=== PATIENT | male | born 1935 | race Caucasian/White ===

== ENCOUNTER 2017-03-18 19:18 | Inpatient (IN) ==
--- NOTE | 2017-03-18 19:44 | Emergency Department Note ---
Arrival - Arrival Chief Complaint: Neuro ED Nursing Triage Note: pt lives alone and family came to visit around 1800 today and stated pt was ambulatory but had right side facial droop with slurred speech that obviously had resolved upon ems arrival. no obvious s/s of facial droop or slurred speech or weakness noted in triage. pt states he has had a headache since about 1300 today but hasnt had his bp med today Limitations: Altered Mental Status Source: Patient, Family Time Seen by Provider: 03/18/17 19:39 - History of Present Illness HPI Narrative: This 81-year-old white male presents with a history of being found by his family approximately 2 hours ago with a right facial droop, slurred speech, and confusion. They did not observe any specific focal motor weakness. Patient's symptoms resolved in the process of being conveyed to the hospital by EMS and now the patient presents alert and oriented with clear speech. This follows approximate 24 hours after having an episode of confusion and abnormal behavior that again was short lived but not associated with slurred speech or facial droop. Because of his symptoms yesterday he was seen by Dr. Gokul Wyman who undertook a number studies including a CT of the brain which yesterday was normal. The patient complains of a chronic moderate headache behind the right eye not associated with nausea, vomiting, diaphoresis, chest pain, shortness of breath, or focal deficit. Patient does have a history of a prior CVA which at the time was associated with left-sided weakness but all deficits had resolved. Currently the patient appears in no acute medical distress. Onset (ago): hour(s) (Patient presents 36 hours post onset of symptoms.) Allergies/Adverse Reactions: Allergies Allergy/AdvReac Type Severity Reaction Status Date / Time Penicillins Allergy RASH Verified 10/17/16 18:17 Home Medications: Home Medications Medication Instructions Recorded Confirmed Type Alfuzosin [Uroxatral] 10 mg PO DAILY 10/17/16 03/18/17 History Aspirin EC Tab 81 mg PO DAILY 10/17/16 03/18/17 History [place]-3 Fatty Acids [Fish Oil 1,000 mg PO DAILY 10/17/16 03/18/17 History Concentrate] Meclizine [Antivert] 25 mg PO QID PRN #50 tablet 10/22/16 03/18/17 Rx Omeprazole [Prilosec] 20 mg PO DAILY #30 capsule 10/22/16 03/18/17 Rx Review of System - Review of System 12 point system: reviewed and no additional remarkable complaints except as stated - Review of System Constitutional: Present: as per HPI Respiratory: Present: as per HPI Cardiovascular: Present: as per HPI Gastrointestinal: Present: as per HPI Neurological: Present: as per HPI Medical,Surgical,& Family Hx - Medical History Cardio: History of: Hypertension Genitourinary: History of: Prostate Problems (BPH) - Family History Family History: Reports;: Family Cancer, Family Heart Disease - Social History Smoking Status: Never smoker Frequency of Alcohol Use: None Type of Drug Use: None Exam Physical Examination: GENERAL: Well developed, well nourished elderly white male in no acute distress. HEENT: Normocephalic. No trauma. Moist mucous membranes. EOMI. PERRLA. ENT NML NECK: Supple. No adenopathy. CARDIAC: Regular. No murmurs. Heart rate 81 CHEST: Clear to auscultation. No respiratory distress. O2 sat 99% ABDOMEN: Soft. Nontender. Active bowel sounds. EXTREMITIES: No trauma. Normal ROM. No pedal edema. SKIN: No diaphoresis. No rash. NEURO: Alert. Oriented 3. Motor, sensory, vibratory intact. No focal deficits. Vital Signs: Vital Signs Temperature 98.7 F 03/18/17 19:25 Pulse Rate 70 03/18/17 19:25 Respiratory Rate 20 03/18/17 19:25 Blood Pressure 176/82 03/18/17 19:25 O2 Sat by Pulse Oximetry 99 03/18/17 19:25 Course - Reevaluation(s) Reevaluation #1: Discussed with family the evidence of stroke on today's CT of the head and the need for hospitalization. - Consultations Consultation #1: Discussed with Dr. Hollins who will admit for Dr. Wyman for further evaluation treatment. Results - Labs CBC & BMP: 03/18/17 19:27 03/18/17 19:27 Labs: I reviewed the laboratory noted the renal insufficiency. - Impressions EKG: Sinus rhythm with sinus arrhythmia at 81 with normal [place] interval and QRS duration. Nonspecific ST changes. No acute injury pattern noted. - Diagnostic Findings Procedure: Chest x-ray: image reviewed by me, report reviewed by me (Mild cardiomegaly otherwise negative chest), CT: image reviewed by me, report reviewed by me (Head: 2 parietal temporal lobe small infarcts) Disposition Clinical Impression: CVA, Hypertension, Prostatic hypertrophy Case discussed with: patient, patient's family Disposition: Still a Patient Condition: Guarded Time of Disposition: 20:41
[2017-03-18 19:49] LABS: Basophils % 0.3 % (0.0-0.8); Eosinophils # 0.1 10*3/uL (0.0-0.87); Hematocrit 47.9 VOL% (42.0-52.0); Hemoglobin 16.7 GM/DL (14.0-18.0); Immature Granulocytes % 1.7 %; Immature Granulocytes Absolute 0.15 #; Lymphocytes # 1.3 10*3/uL (1.4-4.0); Lymphocytes % 15.3 % (21.2-54.2); Mean Corpuscular HGB Conc 34.9 GM/DL (32-36); Mean Corpuscular Hemoglobin 31 PG (27-34); Mean Corpuscular Volume 89.2 FL (87-102); Mean Platelet Volume 10.5 FL (9.6-12.0); Monocytes # 0.8 10*3/uL (0.11-0.8); Monocytes % 8.6 % (1.7-12.7); Neutrophils # 6.4 10*3/uL (1.4-7.4); Neutrophils % 73.1 % (38.7-73.9); Platelet Count 134 T/CUMM (130-400); Red Blood Count 5.37 MC/CUMM (3.8-5.5); Red Cell Distribution Width 13.7 % (9.3-17.3); White Blood Count 8.7 T/CUMM (4-12)
[2017-03-18 19:55] LABS: INR 0.9; PT Patient Result 9.9 SECS; Partial Thromboplastin Time 24.3 SECS (0-40)
--- NOTE | 2017-03-18 20:01 | XRay Report ---
2 view chest. Indication: Altered mental status. Comparison: July 02, 2010. The heart is mildly enlarged with left ventricular hypertrophy. The pulmonary vasculature is normal. There is no consolidation, pneumothorax, or pleural effusion. Degenerative changes of the spinal column. Impression: Mild cardiomegaly. PROCEDURE INTERPRETED AT [facility] DEPARTMENT OF RADIOLOGY Final Report Signed by: Dr. Georgina Martinez
--- NOTE | 2017-03-18 20:01 | CT Report ---
CT of the head without contrast. Indication: Altered mental status. Comparison: March 17, 2017 at 1206 hours. There is generalized prominence of the ventricles and sulci consistent with atrophy of aging. There is an area of wedge-shaped low density involving the cortex and underlying white matter of the right temporoparietal lobe, increased in prominence compared to the exam earlier today, and not present on more remote studies. This is a second similar focus of cortical low density, which is smaller, in the right parietal lobe. Chronic basal ganglia lacunar infarction seen on the left. No mass effect or midline shift. No evidence of acute hemorrhage. The calvarium is intact. The included paranasal sinuses and the mastoid air cells are clear. Impression: There is generalized atrophy, chronic lacunar infarcts on the left, and white matter changes consistent with chronic microvascular ischemia. There are 2 foci of low density present suspicious for early subacute infarcts, involving the right parietal lobe in the right temporoparietal lobe. The CT exam was performed using one or more of the following dose reduction techniques: Automated exposure control, adjustment of the mA and/or kV according to patient size, or use of iterative reconstruction technique. PROCEDURE INTERPRETED AT [facility] DEPARTMENT OF RADIOLOGY Final Report Signed by: Dr. Georgina Martinez
[2017-03-18 20:05] LABS: Alanine Aminotransferase 21 U/L (16-61); Albumin 3.7 G/DL (3.4-5.0); Alkaline Phosphatase 99 U/L (45-117); Aspartate Amino Transferase 16 U/L (0-37); Blood Urea Nitrogen 26 MG/DL (7-18); Calcium 8.1 MG/DL (8.5-10.1); Glucose 98 MG/DL (74-106); Osmolality,Calculated 283.4 MOS/KG (273-304); Potassium 4.6 MMOL/L (3.5-5.1); Sodium 140 MMOL/L (136-145); Troponin I Only 0.026 NG/ML (0.00-0.045)
[2017-03-18 20:21] LABS: Apearance,Urine CLEAR (Clear); Bilirubin,Urine Negative (Negative); Blood, Urine Negative (Negative); Glucose,Urine (UA) Negative (Negative); Ketones,Urine Negative (Negative); Nitrite,Urine Negative (Negative); Protein,Urine Negative; RBC,Urine <1 /HPF (0-4); Urine Color Straw (Yellow); Urine Specific Gravity 1.008 (1.001-1.035); Urine Urobilinogen < 2.0 EU/DL (0.2-1.0)
[2017-03-18 20:31] LABS: Barbiturates Screen,Urine Negative (Negative); Benzodiazepines Screen,Urine Negative (Negative); Cannabinoid Screen,Urine Negative (Negative); Opiate Screen,Urine Negative (Negative); Phencyclidine Screen,Urine Negative (Negative)
[2017-03-18] MEDS ORDERED: ONDANSETRON 4 MG/2 ML VIAL IV PRN (20:43)
[2017-03-18] MEDS ORDERED: ACETAMINOPHEN 500 MG TABLET PO PRN (21:35)
[2017-03-18 22:06] LABS: Folate 11.8 NG/ML (5.4-24.0)
--- NOTE | 2017-03-19 05:51 | EKG Report ---
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
[2017-03-19 06:24] LABS: Risk Ratio 2.4; VLDL CHOLESTEROL 11.2 MG/DL
--- NOTE | 2017-03-19 07:57 | EKG Report ---
Stationary ECG Study 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
--- NOTE | 2017-03-19 08:08 | Urology Consultation ---
History of Present Illness - Data of Consult Consult date: 03/19/17 - Consult Narrative History of present illness: Mr. Ventura is a 81 year old male This 81-year-old white male is seen in consultation with Dr. Wyman because of a history of kidney stones. The patient has had left flank pain and recently had an outpatient CT scan that shows 2 stones in the left mid ureter. The patient is subsequently been admitted with possible stroke and is currently on anticoagulation. I am going recommend that we do a KUB to see if the stones are visualized in 1 of the stones is 9 mm so the patient will probably require lithotripsy but he will have to be off of anticoagulation when this is done. My plan at this point is to delay any treatment until we can safely plan intervention. CC: Jung Wyman, DO - Home Medications and Allergies Home Medications: Home Medications Medication Instructions Recorded Confirmed Type Alfuzosin [Uroxatral] 10 mg PO DAILY 10/17/16 03/18/17 History Aspirin EC Tab 81 mg PO DAILY 10/17/16 03/18/17 History [place]-3 Fatty Acids [Fish Oil 1,000 mg PO DAILY 10/17/16 03/18/17 History Concentrate] Meclizine [Antivert] 25 mg PO QID PRN #50 tablet 10/22/16 03/18/17 Rx Omeprazole [Prilosec] 20 mg PO DAILY #30 capsule 10/22/16 03/18/17 Rx Acetaminophen Tab [Tylenol Tab] 500 mg PO Q4H 03/18/17 03/18/17 History Ciprofloxacin HCl [Ciprofloxacin 250 mg PO BID 03/18/17 03/18/17 History Tab] Losartan Potassium 50 mg PO DAILY 03/18/17 03/18/17 History Naproxen Sodium [Naproxen Sodium 220 mg PO DAILY 03/18/17 03/18/17 History Cap] methylPREDNISolone 4 mg PO DAILY 03/18/17 03/18/17 History [Methylprednisolone] Pseudoephedrine [Sudafed] 30 mg PO BID 03/19/17 03/19/17 History Allergies/Adverse Reactions: Allergies Allergy/AdvReac Type Severity Reaction Status Date / Time Penicillins Allergy RASH Verified 10/17/16 18:17 Exam - Constitutional Vitals: Period Temp Pulse Resp BP Sys/Nixon Pulse Ox Last 24 Hr 97.6 F-98.9 F 51-70 16-20 167-196/81-95 96-100 Results - Labs CBC & BMP: 03/18/17 19:27 03/18/17 19:27
[2017-03-19] MEDS ORDERED: ASPIRIN EC 325 MG TABLET PO SCH (09:00)
[2017-03-19] MEDS ORDERED: LOSARTAN 50 MG TABLET PO SCH (09:00)
[2017-03-19] MEDS ORDERED: CLOPIDOGREL 75 MG TABLET PO SCH (09:00)
[2017-03-19] MEDS: LISINOPRIL 10 MG TABLET PO SCH (09:07)
[2017-03-19] MEDS: ALFUZOSIN 10 MG TABLET PO SCH (09:07)
[2017-03-19] MEDS: CIPROFLOXACIN 250 MG TABLET PO SCH ×2 (09:07→21:48)
[2017-03-19] MEDS: OMEGA 3 ACID ETHYL ESTERS 1 GM CAPSULE PO SCH (09:07)
[2017-03-19] MEDS: PANTOPRAZOLE 40 MG TABLET PO SCH (09:08)
--- NOTE | 2017-03-19 09:26 | Family Practice History&Phys ---
Assessment and Plan (1) Left-sided cerebrovascular accident (CVA) Status: Acute Assessment and plan: 03/19/2017: Lab studies being obtained we will get an MRI and echocardiogram and carotid duplex today and will get a neurology consult. Patient is already on Current Visit: Yes History of Present Illness Chief complaint: Stroke involving left side History of present illness: Mr. Ventura is a 81 year old male Known to me. 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 Came to the clinic very recently and was said to have been weak. There was a question of whether he was having neurologic symptoms at that time. It was shown that a CT scan of his head was normal and we did do a CT of his abdomen and pelvis as he was complaining of left flank pain; the study showed that he did have a 9 mm ureteral stone along with a 2 mm stone. It was felt that he may have had a urinary tract infection which certainly could have been causing some of his confusion symptoms. Nonetheless, he came to the emergency room last night after having been confused at home and was having some left facial numbness and weakness per his family. There was a question of whether he was a little weak on his left arm as well. His confusion had reoccurred as well. Due to these issues patient was admitted and a CT scan repeat did reveal a acute /subacute areas suspicious for infarct involving the right parietal lobe and right temporal parietal lobe. Patient also has generalized atrophy and chronic lacunar infarcts. On exam the patient does have some slight facial drawing on the left. He is able to follow all commands and is oriented and continues to maintain his humor and wit. There may be some very minimal weakness on his left arm and leg, as well. He is not having any difficulty swallowing his secretions. No visual cuts or cranial nerve deficits are otherwise appreciated except for the slight droopiness of his left mouth and eyebrow. Although his daughter states that he was confused he does not seem to be disoriented at present. Home Medications Medication Instructions Recorded Confirmed Type Alfuzosin [Uroxatral] 10 mg PO DAILY 10/17/16 03/18/17 History Aspirin EC Tab 81 mg PO DAILY 10/17/16 03/18/17 History [place]-3 Fatty Acids [Fish Oil 1,000 mg PO DAILY 10/17/16 03/18/17 History Concentrate] Meclizine [Antivert] 25 mg PO QID PRN #50 tablet 10/22/16 03/18/17 Rx Omeprazole [Prilosec] 20 mg PO DAILY #30 capsule 10/22/16 03/18/17 Rx Acetaminophen Tab [Tylenol Tab] 500 mg PO Q4H 03/18/17 03/18/17 History Ciprofloxacin HCl [Ciprofloxacin 250 mg PO BID 03/18/17 03/18/17 History Tab] Losartan Potassium 50 mg PO DAILY 03/18/17 03/18/17 History Naproxen Sodium [Naproxen Sodium 220 mg PO DAILY 03/18/17 03/18/17 History Cap] methylPREDNISolone 4 mg PO DAILY 03/18/17 03/18/17 History [Methylprednisolone] Pseudoephedrine [Sudafed] 30 mg PO BID 03/19/17 03/19/17 History Allergies Allergy/AdvReac Type Severity Reaction Status Date / Time Penicillins Allergy RASH Verified 10/17/16 18:17 - EENT Eyes: Present: as per HPI Ears: Present: as per HPI Nose, mouth and throat: Absent: dysphagia - Cardiovascular Cardiovascular: Absent: chest pain at rest - Respiratory Respiratory: Absent: cough - Gastrointestinal Gastrointestinal: Absent: abdominal pain - Neurological Neurological: Present: confusion, headache(s), numbness (Left side of face) Medical,Surgical,& Family Hx - Medical History Cardio: History of: Hypertension Genitourinary: History of: Prostate Problems (BPH) - Family History Family History: Reports;: Family Cancer, Family Heart Disease - Social History Smoking Status: Never smoker Frequency of Alcohol Use: None Type of Drug Use: None Exam - Constitutional Vitals: Period Temp Pulse Resp BP Sys/Nixon Pulse Ox Last 24 Hr 97.6 F-98.9 F 51-70 16-20 163-196/75-95 96-100 Exam: Generally well-developed man he does live with his who is elderly and 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
--- NOTE | 2017-03-19 11:17 | Ultrasound Report ---
US carotid duplex BI Indication: CVA. Comparison: None. Technique: Multiple longitudinal and transverse real-time sonographic images of the bilateral carotid arterial systems are obtained with grayscale, spectral, and color Doppler analysis. Findings: Peak systolic velocities within the right CCA, proximal ICA, and distal ICA are 102, 82, and 56 cm/s respectively. Peak systolic velocities within the left CCA, proximal ICA, and distal ICA are 70, 66, and 59 cm/s respectively. ICA/CCA ratios on the right and left are 0.8 and 0.9 respectively. Antegrade flow demonstrated within the bilateral vertebral arteries. Grayscale imaging demonstrates mild bilateral atherosclerotic plaque. IMPRESSION: No convincing sonographic evidence of significant (50% or greater) narrowing of either cervical internal carotid artery. Indirect NASCET criteria utilized. PROCEDURE INTERPRETED AT [facility] DEPARTMENT OF RADIOLOGY Final Report Signed by: Dr Steve Liriano
--- NOTE | 2017-03-19 13:17 | XRay Report ---
Referring Physician: Dustin Maravilla Exam: XR KUB Date: March 19, 2017 Reason: Stones in the left ureter Comparison: CT abdomen and pelvis March 17, 2017 Findings: Small bilateral renal calculi were seen on the previous CT but are poorly demonstrated on this study. There are 2 adjacent oval densities to the left of the L4 vertebral body, one measuring 1.0 x 0.6 cm and the other measuring 0.4 cm. This is concerning for stones within the mid left ureter. The largest ureteral stone appears stable in position. There is no evidence of bowel obstruction or free air. Small densities are seen within the lower pelvis and could represent prostate radioactive seed implantation. No acute osseous process is identified. Impression: There are 2 adjacent oval densities to the left of the L4 vertebral body. This is concerning for 2 adjacent stones within the mid left ureter. The larger left ureteral stone appears stable in location. The smaller stone at this level could represent the 0.4 cm stone previously seen within the left renal pelvis. PROCEDURE INTERPRETED AT [facility] DEPARTMENT OF RADIOLOGY Final Report Signed by: Dr. Tamara Johnson
--- NOTE | 2017-03-19 14:13 | Magnetic Resonance Report ---
Referring physician: Jung Wyman Exam: MRI brain without contrast Date: March 19, 2017 Comparison: MRI brain October 22, 2016, CT brain without contrast March 18, 2017 Reason: CVA, left facial droop, slurred speech The patient is an inpatient who was admitted on March 18, 2017. Technique: MRI of the brain was performed without the use of contrast. Obtained images include sagittal T1, axial diffusion-weighted, axial FLAIR, axial T2, coronal T2, axial gradient and axial T1 sequences. A 1.5 Kelsi magnet was used. Findings: Motion artifact is present and degrades the quality of the study. There are scattered areas of diffusion restriction with corresponding T2/FLAIR hyperintensity within the right parietal lobe, right parietal occipital region and posterior right temporal lobe. This is concerning for areas of acute infarction. This involves the cortical and subcortical white matter and is most prominent at the posterior right temporal lobe where the abnormal signal is moderate in size. This is in a posterior right MCA distribution. There is mild generalized cerebral atrophy/volume loss. Small scattered areas of T2/FLAIR hyperintensity without corresponding diffusion restriction are seen within the cerebral white matter bilaterally, similar to before. This is nonspecific but likely represents mild chronic microvascular ischemic change. A remote lacunar infarction is again seen within the left basal ganglia. No hydrocephalus or midline shift is present. There is no evidence of recent intracranial hemorrhage, and no abnormal extra-axial fluid collection is identified. Major vascular flow voids are visualized. The patient is likely status post cataract surgery. The orbits and brain stem are otherwise unremarkable. The sella is mildly distended with CSF, but there is residual pituitary tissue at the sellar floor. This is similar to before and suggests a partially empty sella. The paranasal sinuses and mastoid air cells are clear. Impression: 1. There are scattered areas of diffusion restriction within the right parietal lobe, right parietal occipital region and posterior right temporal lobe. This is concerning for areas of acute infarction and is most prominent within the posterior right temporal lobe. 2. Mild generalized cerebral atrophy/volume loss and probable mild chronic microvascular ischemic change. This is similar to the previous study. 3. Remote lacunar infarction within the left basal ganglia, similar to before. Findings were discussed with Dr. Jung Wyman on March 19, 2017 at 2:07 PM. This is a critical test. PROCEDURE INTERPRETED AT [facility] DEPARTMENT OF RADIOLOGY Final Report Signed by: Dr. Tamara Johnson
--- NOTE | 2017-03-19 16:52 | Neurology Consult Note ---
History of Present Illness History of present illness: Mr. Ventura is a 81 year old right-handed white gentleman admitted to hospital with acute onset of left facial droop and left-sided weakness. This started yesterday. He was recently found to have kidney stones in the bladder. He has been and started on some antibiotic treatment. He underwent MRI of the brain which reveals cortical right MCA distribution acute infarct. Patient does have left facial weakness and left-sided weakness with left hemineglect. He also has some confusion. Carotid ultrasound is unremarkable. Lipid profile looks okay Home Medications Medication Instructions Recorded Confirmed Type Alfuzosin [Uroxatral] 10 mg PO DAILY 10/17/16 03/18/17 History Aspirin EC Tab 81 mg PO DAILY 10/17/16 03/18/17 History [place]-3 Fatty Acids [Fish Oil 1,000 mg PO DAILY 10/17/16 03/18/17 History Concentrate] Meclizine [Antivert] 25 mg PO QID PRN #50 tablet 10/22/16 03/18/17 Rx Omeprazole [Prilosec] 20 mg PO DAILY #30 capsule 10/22/16 03/18/17 Rx Acetaminophen Tab [Tylenol Tab] 500 mg PO Q4H 03/18/17 03/18/17 History Ciprofloxacin HCl [Ciprofloxacin 250 mg PO BID 03/18/17 03/18/17 History Tab] Losartan Potassium 50 mg PO DAILY 03/18/17 03/18/17 History Naproxen Sodium [Naproxen Sodium 220 mg PO DAILY 03/18/17 03/18/17 History Cap] methylPREDNISolone 4 mg PO DAILY 03/18/17 03/18/17 History [Methylprednisolone] Pseudoephedrine [Sudafed] 30 mg PO BID 03/19/17 03/19/17 History Allergies Allergy/AdvReac Type Severity Reaction Status Date / Time Penicillins Allergy RASH Verified 10/17/16 18:17 12 point system: reviewed and no additional remarkable complaints except as stated Medical,Surgical,& Family Hx - Medical History Cardio: History of: Hypertension Genitourinary: History of: Prostate Problems (BPH) - Family History Family History: Reports;: Family Cancer, Family Heart Disease - Social History Smoking Status: Never smoker Frequency of Alcohol Use: None Type of Drug Use: None Exam - Constitutional Vitals: Period Temp Pulse Resp BP Sys/[place]ixon Pulse Ox Last 24 Hr 97.6 F-98.9 F 51-70 16-20 152-196/70-95 96-100 Exam: GENERAL: Patient is in no acute distress. NECK: Neck is supple. There is no JVD. No carotid bruits present. No thyroid masses. CVS: First and second heart sounds are normal. There is no S3 present. Regular rate and rhythm. RESPIRATORY: Lungs are clear to auscultation without any rales or rhonchi. ABDOMEN: Soft and non-tender. Bowel sounds are present. There is no hepatosplenomegaly. EXT: There is no palpable edema. Peripheral pulses are present. Skin: No rashes Central Nervous system: General: Alert, awake Speech: Fluent but dysarthric Comprehension: Fair Facial expressions: Normal Cranial Nerves: CN1/Olfactory: Normal CN II/ Optic: Normal, Visual Curran left homonymous hemianopia CN III, and : CORA & EOMI CN V: Normal & intact CN VII: face is symmetric CNVIII: Normal CN XI/X/XI/XII: Intact and Normal Motor: Bulk and Tone is normal. Strength in the right 5/5 Strength in the left 2-3/5 Sensory: Decreased for all the modalities of PP, LT and temp sense in the left arm and leg Reflexes: 1+ and symmetrical Cerebellar function: Slow finger to nose and heel to martell testing in the left. Toes: Equivocal Gait: Not tested at this time Results - Labs CBC & BMP: 03/18/17 19:27 03/18/17 19:27 Assessment and Plan (1) Acute ischemic left MCA stroke Status: Acute Assessment and plan: Stop aspirin and Plavix Eliquis 5 mg p.o. twice daily Consult TMR Echocardiogram Thank you for the consult Current Visit: Yes
--- NOTE | 2017-03-19 21:31 | ECHO Report ---
Jake Ventura Exam Date: 03/19/2017 08:23 Referring Physician: Technologist: lynda Dolan ARDMS, RVT Age: 81 Ht (in): 72 Wt (lb): 220 Gender: M Exam Location: [facility] Indications: Weakness, Essential (primary) hypertension, Hx: CVA, RT facial droop BP: 176 / 81 HR: 70 Rhythm: Sinus Technical Quality: IMPRESSIONS no mass or thrombus no obvious cardiac source of embolus Moderate left ventricular hypertrophy. Left ventricular ejection fraction is estimated at 60 %. Trace mitral valve regurgitation. Aortic valve sclerosis . Mild tricuspid valve regurgitation. Tricuspid regurgitation velocities suggest a PAP of 38 mmHg. MEASUREMENTS (Male / Female) Normal Values 2D ECHO LV Diastolic Diameter PLAX 4.5 cm 4.2 - 5.9 / 3.9 - 5.3 cm LV Systolic Diameter PLAX 2.0 cm LV Fractional Shortening PLAX 55.8 % IVS Diastolic Thickness 1.7 cm 0.6 - 1.0 / 0.6 - 0.9 cm LVPW Diastolic Thickness 1.5 cm 0.6 - 1.0 / 0.6 - 0.9 cm RV Internal Dim ED PLAX 3.4 cm Aortic Root Diameter 3.4 cm LA Systolic Diameter LX 3.9 cm 3.0 - 4.0 / 2.7 - 3.8 cm DOPPLER TR Peak Velocity 266.0 cm/s TR Peak Gradient 28.3 mmHg FINDINGS Left Ventricle Normal left ventricular cavity size. Moderate left ventricular hypertrophy. Left ventricular ejection fraction is estimated at 60 %. Right Ventricle The right ventricle is normal in size and function. Right Atrium The right atrium is normal in size. Left Atrium The left atrium is normal in size. Mitral Valve Morphologically normal mitral valve. Trace mitral valve regurgitation. Aortic Valve aortic valve sclerosis . There is no aortic regurgitation. Tricuspid Valve Morphologically normal tricuspid valve. Mild tricuspid valve regurgitation. Tricuspid regurgitation velocities suggest a PAP of 38 mmHg. Pulmonic Valve Morphologically normal pulmonic valve without significant stenosis. There is no pulmonic regurgitation. Pericardium Normal pericardium without effusion. Aorta Normal ascending aorta dimension. Cameron Hernandez MD (Electronically Signed) Final Date: 19 March 2017 21:01
[2017-03-19] MEDS: SODIUM CHLORIDE 0.9% 1,000 ML IV SCH (21:45)
[2017-03-19] MEDS: APIXABAN 5 MG TABLET PO SCH (21:48)
[2017-03-20] MEDS: SODIUM CHLORIDE 0.9% 1,000 ML IV SCH ×3 (05:37→16:52)
--- NOTE | 2017-03-20 06:17 | Urology Progress Note ---
Urology - PN: Subj Interval history: The patient is not complaining of any pain. I will plan treatment of the stones with shockwave lithotripsy electively when his condition improves. I will be out of town the rest of the week and Dr. Gama will be available if needed . I will see the patient again Friday Exam - Constitutional Vitals: Period Temp Pulse Resp BP Sys/Nixon Pulse Ox Last 24 Hr 97.9 F-99.3 F 62-70 18-20 124-163/60-75 95-98 Results - Labs CBC & BMP: 03/18/17 19:27 03/18/17 19:27
[2017-03-20] MEDS ORDERED: LORATADINE 10 MG TABLET PO PRN (09:02)
--- NOTE | 2017-03-20 09:32 | Neurology Progress Note ---
Neurology - PN : Subjective Interval history: Apparently patient has progressed a little more with increasing left-sided weakness. No other problems reported. His speech is dysarthric but fluent. Exam (Progress Note) - Constitutional Vitals: Period Temp Pulse Resp BP Sys/Nixon Pulse Ox Last 24 Hr 97.9 F-99.3 F 65-70 18-20 124-152/60-75 95-97 Exam: GENERAL: Patient is in no acute distress. NECK: Neck is supple. There is no JVD. No carotid bruits present. No thyroid masses. CVS: First and second heart sounds are normal. There is no S3 present. Regular rate and rhythm. RESPIRATORY: Lungs are clear to auscultation without any rales or rhonchi. ABDOMEN: Soft and non-tender. Bowel sounds are present. There is no hepatosplenomegaly. EXT: There is no palpable edema. Peripheral pulses are present. Skin: No rashes Central Nervous system: General: Alert, awake Speech: Fluent but dysarthric Comprehension: Fair Facial expressions: Normal Cranial Nerves: CN1/Olfactory: Normal CN II/ Optic: Normal, Visual Curran left homonymous hemianopia CN III, and : CORA & EOMI CN V: Normal & intact CN VII: face is symmetric CNVIII: Normal CN XI/X/XI/XII: Intact and Normal Motor: Bulk and Tone is normal. Strength in the right 5/5 Strength in the left 2-3/5 Sensory: Decreased for all the modalities of PP, LT and temp sense in the left arm and leg Reflexes: 1+ and symmetrical Cerebellar function: Slow finger to nose and heel to martell testing in the left. Toes: Equivocal Gait: Not tested at this time Results - Labs CBC & BMP: 03/18/17 19:27 03/18/17 19:27 Assessment and Plan (1) Acute ischemic left MCA stroke Status: Acute Assessment and plan: Continue Eliquis. Continue PT OT and ST For [facility] rehab placement tomorrow Current Visit: Yes Quality Measures - Stroke Onset of Symptoms Date: 03/18/17 Symptom Onset Unknown: Yes
[2017-03-20] MEDS: OMEGA 3 ACID ETHYL ESTERS 1 GM CAPSULE PO SCH (09:45)
[2017-03-20] MEDS: PANTOPRAZOLE 40 MG TABLET PO SCH (09:45)
[2017-03-20] MEDS: CIPROFLOXACIN 250 MG TABLET PO SCH ×2 (09:45→20:27)
[2017-03-20] MEDS: APIXABAN 5 MG TABLET PO SCH (09:45)
[2017-03-20] MEDS: LISINOPRIL 10 MG TABLET PO SCH (09:45)
[2017-03-20] MEDS: ALFUZOSIN 10 MG TABLET PO SCH (09:45)
--- NOTE | 2017-03-20 10:04 | Family Practice Progress Note ---
Family Practice - PN: Subj Interval history: Patient seen this morning. He is stable hemodynamically. Is alert and oriented but is having some continued left-sided deficits including some visual cuts involving the left temporal aspect, left homonymous hemianopsia. He has some left-sided neglect in general but he is able to squeeze hand with coercion. Is able to move his left side on command both arm and leg but as mentioned does have neglect. No fever chills nausea vomiting or diarrhea. He is not eating a lot and I am going to put him on some IV fluids to keep his hydration status. Cholesterol studies were normal. Carotid duplex was essentially normal. Echocardiogram was essentially normal with an ejection fraction of 60% and no evidence of thrombus. Uncertain where the origin of embolus was from whether it was embolus at all or that her a combination of severe cerebrovascular disease. Continuing to treat with physical therapy and Occupational Therapy. And plan rehab hopefully tomorrow. Exam (Progress Note) - Constitutional Vitals: Period Temp Pulse Resp BP Sys/Nixon Pulse Ox Last 24 Hr 97.9 F-99.3 F 65-70 18-20 124-152/60-75 95-97 Exam: Generally unchanged overall neurologic status. May be slightly worse on the left side actually. HEENT as mentioned above he does have some left sided temporal visual loss. Neck is supple trachea midline. Still has a drooping of his mouth and we are going to do a swallowing study today. Cardiovascular rate is regular no gallop or rub 1/6 systolic ejection murmur Lungs generally clear except for mild cough Abdomen soft nondistended Extremities no clubbing cyanosis or edema Results - Labs CBC & BMP: 03/18/17 19:27 03/18/17 19:27 Assessment and Plan (1) Left-sided cerebrovascular accident (CVA) Status: Acute Assessment and plan: 03/19/2017: Lab studies being obtained we will get an MRI and echocardiogram and carotid duplex today and will get a neurology consult. Patient is already on 03/20/2017 appreciate neurology consult on this case and continue with PT OT Current Visit: Yes (2) Nausea & vomiting Status: Resolved Assessment and plan: 03/20/2017: Patient is not having any at this time. He actually had some earlier this week Current Visit: No Quality Measures - Stroke Onset of Symptoms Date: 03/18/17 Symptom Onset Unknown: Yes
[2017-03-20] MEDS ORDERED: MAGNESIUM HYDROXIDE SUSP 30 ML UDCUP PO PRN (17:18)
[2017-03-20] MEDS: DOCUSATE SODIUM 100 MG CAPSULE PO SCH (20:28)
[2017-03-20] MEDS: APIXABAN 2.5 MG TABLET PO SCH (20:28)
[2017-03-21] MEDS: SODIUM CHLORIDE 0.9% 1,000 ML IV SCH ×3 (02:54→10:44)
[2017-03-21 04:15] LABS: Basophils % 0.3 % (0.0-0.8); Eosinophils # 0.1 10*3/uL (0.0-0.87); Eosinophils % 1.7 % (0.00-10.9); Hematocrit 42.6 VOL% (42.0-52.0); Hemoglobin 14.9 GM/DL (14.0-18.0); Immature Granulocytes % 0.8 %; Immature Granulocytes Absolute 0.06 #; Lymphocytes # 1.4 10*3/uL (1.4-4.0); Lymphocytes % 19.7 % (21.2-54.2); Mean Corpuscular Hemoglobin 31 PG (27-34); Mean Corpuscular Volume 88.4 FL (87-102); Mean Platelet Volume 10.4 FL (9.6-12.0); Monocytes # 0.6 10*3/uL (0.11-0.8); Neutrophils # 4.9 10*3/uL (1.4-7.4); Neutrophils % 68.5 % (38.7-73.9); Platelet Count 136 T/CUMM (130-400); Red Blood Count 4.82 MC/CUMM (3.8-5.5); Red Cell Distribution Width 13.2 % (9.3-17.3); White Blood Count 7.1 T/CUMM (4-12)
[2017-03-21 04:38] LABS: Magnesium 2.1 MG/DL (1.8-2.4); Osmolality,Calculated 287.3 MOS/KG (273-304); Potassium 4.8 MMOL/L (3.5-5.1)
[2017-03-21 07:58] VITALS: BP 148/68
[2017-03-21] MEDS ORDERED: methylPREDNISolone 4 MG TABLET PO SCH (09:00)
[2017-03-21] MEDS: ALFUZOSIN 10 MG TABLET PO SCH (09:16)
[2017-03-21] MEDS: PANTOPRAZOLE 40 MG TABLET PO SCH (09:16)
[2017-03-21] MEDS: OMEGA 3 ACID ETHYL ESTERS 1 GM CAPSULE PO SCH (09:16)
[2017-03-21] MEDS: DOCUSATE SODIUM 100 MG CAPSULE PO SCH (09:16)
[2017-03-21] MEDS: CIPROFLOXACIN 250 MG TABLET PO SCH (09:17)
[2017-03-21] MEDS: LISINOPRIL 10 MG TABLET PO SCH (09:17)
[2017-03-21] MEDS: APIXABAN 2.5 MG TABLET PO SCH (09:17)
--- NOTE | 2017-03-21 09:23 | Discharge Summary ---
Hospital Course - Hospital Course Hospital Course: Patient came to the hospital with a stroke with some left-sided deficits. This was proved to be true per CT scan. He also has a kidney stone in his right flank and this measures approximately 9 mm. I did get neurology to see him and he is going to need rehab. He is going to see be seen by urology down in the rehab unit as well. He is currently on Eliquis which makes the ability to deal with his kidney stone very difficult. No fever chills. He does have paroxysmal cough. Hopefully rehab can improve his quality of life and decrease the extent of his left-sided deficits. Should also be noted that he does have some left sided neglect Diagnosis - Discharge Diagnosis (1) Left-sided cerebrovascular accident (CVA) Status: Chronic Specialty Discharge - Follow Up or Referrals Follow up with: Jung Wyman DO [Primary Care Provider] - (post discharge from rehab) Discharge Plan - Discharge Data Disposition: Disch/Xfer-Ip Rehab Fac Condition at Discharge: Stable Activity: as per physical therapy Hygiene: other (per therapy) Weight Bearing at Discharge: other (per therapy) Driving: not for Contact your physician if you experience:: fever over 101, Redness or swelling, Bleeding - Discharge Medications New Apixaban [Eliquis] 2.5 mg PO BID tablet Lisinopril [Prinivil] 10 mg PO DAILY tablet Magnesium Hydroxide Susp [Milk of Magnesia] 45 ml PO BID PRN PRN Reason: Constipation methylPREDNISolone TAB [Medrol] 4 mg PO DAILY tablet Ondansetron Inj [Zofran Inj] 4 mg IV Q4H PRN vial PRN Reason: Nausea/Vomiting Pantoprazole Tab [Protonix Tab] 40 mg PO DAILY tablet Docusate Sodium Cap [Colace Cap] 100 mg PO BID capsule Loratadine Tab [Claritin Tab] 10 mg PO DAILY PRN tablet PRN Reason: Allergy Symptoms Continue Alfuzosin [Uroxatral] 10 mg PO DAILY Acetaminophen Tab [Tylenol Tab] 500 mg PO Q4H Losartan Potassium 50 mg PO DAILY [place]-3 Fatty Acids [Fish Oil Concentrate] 1,000 mg PO DAILY Discontinued Aspirin EC Tab 81 mg PO DAILY Naproxen Sodium [Naproxen Sodium Cap] 220 mg PO DAILY Ciprofloxacin HCl [Ciprofloxacin Tab] 250 mg PO BID Meclizine [Antivert] 25 mg PO QID PRN #50 tablet PRN Reason: Dizziness Omeprazole [Prilosec] 20 mg PO DAILY #30 capsule methylPREDNISolone [Methylprednisolone] 4 mg PO DAILY Pseudoephedrine [Sudafed] 30 mg PO BID No Action HYDROcodone/ACETAMIN 7.5-325 [[place] 7.5-325] 1 tablet PO Q4H PRN PRN Reason: Pain Moderate To Severe (4-10) - Follow Up or Referral Follow Up: Jung Wyman DO [Primary Care Provider] - (post discharge from rehab) - Forms/Instructions Instructions: Ischemic Stroke (DC), Self Care Measures After a Stroke (DC) Exam - Constitutional Vitals: Period Temp Pulse Resp BP Sys/Nixon Pulse Ox Last 24 Hr 97.6 F-99.7 F 65-91 18-20 124-148/56-80 90-96 Discharge Results Labs on day of discharge: Labs from last 24 hours 03/21/17 03/21/17 03:46 03:46 WBC 7.1 RBC 4.82 Hgb 14.9 Hct 42.6 MCV 88.4 MCH 31 MCHC 35.0 RDW 13.2 Plt Count 136 MPV 10.4 Neut % (Auto) 68.5 Lymph % (Auto) 19.7 L [place] % (Auto) 9.0 Eos % (Auto) 1.7 Baso % (Auto) 0.3 Neut # (Auto) 4.9 Lymph # (Auto) 1.4 [place] # (Auto) 0.6 Eos # (Auto) 0.1 Baso # (Auto) 0.0 Immature Gran % 0.8 Nucleated RBC % 0.0 Immature Gran # 0.06 Nucleated RBCs # 0.00 Sodium 141 Potassium 4.8 Chloride 110 H Carbon Dioxide 22 Anion Gap 13.8 BUN 31 H Creatinine 2.30 H GFR Calculation 30 BUN/Creatinine Ratio 13.00 Glucose 104 Calculated Osmolality 287.3 Calcium 8.0 L Magnesium 2.1 DS: Provider Date of admission: 03/18/17 20:41 Primary care physician: Jung Wyman DO Attending physician on admission: Jung Wyman DO Consults: 03/18/17 21:20 Consult to Physician [CONS] Routine Comment: hydronephrosis Consulting Provider: Dustin Olivo Consult to Specialist Group: Urology Person Notified: SRINIVAS Date Notified: 03/19/17 Time Notified: 11:30 Consult Notification Comment: DR. OLIVO SAW PT. [facility] 03/18/17 21:21 Consult to Case Mgmt/Social Srvs [CONS] Routine Reason for Case Mgmt/Social Srvs: Discharge Planning 03/18/17 21:23 Consult to Physician [CONS] Routine Comment: cva Consulting Provider: Pino Whitman 03/18/17 21:32 Consult to Occupational Therapy [CONS] Routine Reason for Occupational Therapy: Evaluate and Treat Consult to Physical Therapy [CONS] Routine Reason for Physical Therapy: Evaluate and Treat 03/19/17 16:51 Consult to Case Mgmt/Social Srvs [CONS] Routine Reason for Case Mgmt/Social Srvs: Rehab Consult Comment: consult Juan Gomez Discharging clinician: Jung Wyman DO
== END 2017-03-21 11:03 | DRG 65 ==
LOC: EDUNIT# → EDBD → N.ED 19:18 → N.EDINP 20:41 → N.TELEN 20:56
PROVIDERS: ADMIT Family Medicine; ATTEND Family Medicine

== ENCOUNTER 2017-03-31 14:04 | Inpatient (IN) ==
--- NOTE | 2017-03-31 16:15 | Emergency Department Note ---
I, Toi Garcia, am scribing for, and in the presence of, Stanton Crouch M.D. 15:16. IMiko Howard T, M.D., personally performed the services described in this documentation, ascribed by Toi Garcia in my presence, and it is both accurate and complete 613 . Arrival - Arrival Chief Complaint: Abdominal / Flank Pain Stated Complaint: ABD PAIN ED Nursing Triage Note: FROM [facility]-PT SCHEDULED TO BE ADMITTED TO [facility]-PT HERE TO ADRESS POSSIBLE KIDNEY STONES-ABNORMAL LABS-PT WITH RECENT CVA -C/O PENILE PAIN--GENERALIZED ABD PAIN-NAUSEA Mode of Arrival: Stretcher Limitations: No Limitations Source: Patient, Family Time Seen by Provider: 03/31/17 14:32 - History of Present Illness HPI Narrative: Pt is an 81 y/o white male arriving to ED with c/o abdominal pain that onset 2 weeks ago. Pt was [facility] per [facility] after suffering from an acute CVA. He was admitted to hospital with acute onset of left facial droop and left sided weakness. Once admitted to hospital, a CT head and CT abdominal/pelvis was performed and 2 kidney stones were found, 2mm and 9mm. Dr. Maravilla, pt's neurologist, prescribed the pt a blood thinner for the CVA and stated that the 9mm stone would not pass. However, he thought that performing a lithotripsy would be too dangerous being that the pt is on blood thinners and family was told that the kidney stones need to be put "on the backburner" and the CVA was the main priority. The pain has become unbearable for the pt and family thinks that the kidney stones need to be addressed. Pt is experiencing severe abdominal pain, dysuria, and nausea. Pt has been taking Tylenol extra strength but states that the pain has not been relieved. Pt has a Hx of kidney stones; however, he has always been able to pass them normally. He nor family reports no other complaints to ED. Onset (ago): week(s) Consistency: constant Allergies/Adverse Reactions: Allergies Allergy/AdvReac Type Severity Reaction Status Date / Time Penicillins Allergy RASH Verified 03/21/17 18:56 Home Medications: Home Medications Medication Instructions Recorded Confirmed Type Alfuzosin [Uroxatral] 10 mg PO DAILY 10/17/16 03/31/17 History [place]-3 Fatty Acids [Fish Oil 1,000 mg PO DAILY 10/17/16 03/31/17 History Concentrate] Acetaminophen Tab [Tylenol Tab] 500 mg PO Q4H 03/18/17 03/31/17 History Losartan Potassium 50 mg PO DAILY 03/18/17 03/31/17 History Apixaban [Eliquis] 2.5 mg PO BID tablet 03/21/17 03/31/17 Rx Docusate Sodium Cap [Colace Cap] 100 mg PO BID capsule 03/21/17 03/31/17 Rx HYDROcodone/ACETAMIN 7.5-325 1 tablet PO Q4H PRN 03/21/17 03/31/17 History [[place] 7.5-325] Lisinopril [Prinivil] 10 mg PO DAILY tablet 03/21/17 03/31/17 Rx Loratadine Tab [Claritin Tab] 10 mg PO DAILY PRN tablet 03/21/17 03/31/17 Rx Magnesium Hydroxide Susp [Milk of 45 ml PO BID PRN 03/21/17 03/31/17 Rx Magnesia] Pantoprazole Tab [Protonix Tab] 40 mg PO DAILY tablet 03/21/17 03/31/17 Rx methylPREDNISolone TAB [Medrol] 4 mg PO DAILY tablet 03/21/17 03/31/17 Rx FLUoxetine [PROzac] 20 mg PO DAILY capsule 03/31/17 03/31/17 Rx Sulfameth/Trimeth 800-160 Tab 1 tablet PO BID #6 tablet 03/31/17 03/31/17 Rx [Bactrim DS Tab] Review of System - Review of System 12 point system: reviewed and no additional remarkable complaints except as stated - Review of System Constitutional: Absent: chills, diaphoresis Respiratory: Absent: cough Gastrointestinal: Present: abdominal pain, nausea. Absent: vomiting Genitourinary male: Present: dysuria Musculoskeletal: Absent: arm pain, neck pain Medical,Surgical,& Family Hx - Medical History Cardio: History of: Hypertension Neurology: History of: Cerebrovascular Accident (Left sided weakness) HEENT: History of: Eye Problem (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) Genitourinary: History of: Kidney Stones, Prostate Problems (history of prostate cancer) Gastrointestinal: History of: GI Problems (occasional constipation.) Musculoskeletal: History of: Back/Neck Problems (Back pain), Musculoskeletal Problems (arthritis) - Surgical History Abdominal Surgeries: Surgical HX of: Colonoscopy, EGD Reproductive Surgeries: Surgical HX of;: Prostate Surgery (seeds planted with prostate cancer) - Family History Family History: Reports;: Family Cancer, Family Heart Disease - Social History Smoking Status: Never smoker Exam Vital Signs: Vital Signs Temperature 98.0 F 03/31/17 14:08 Pulse Rate 102 H 03/31/17 14:08 Respiratory Rate 20 03/31/17 14:08 Blood Pressure 152/52 03/31/17 14:08 O2 Sat by Pulse Oximetry 97 03/31/17 14:08 - General General appearance: alert, in no apparent distress - Head Head exam: Present: atraumatic, normocephalic, normal inspection - Eye Eye exam: Present: normal appearance, PERRL, EOMI - ENT ENT exam: Present: normal exam, normal oropharynx, mucous membranes moist, TM's normal bilaterally, normal external ear exam - Neck Neck exam: Present: normal inspection, full ROM, trachea midline. Absent: tenderness - Chest Chest inspection: Present: normal inspection, symmetric chest wall rise. Absent : tenderness - Respiratory Respiratory exam: Present: normal lung sounds bilaterally - Cardiovascular Cardiovascular exam: Present: regular rate, normal rhythm, normal heart sounds - Abdominal Exam Abdominal exam: Present: soft, tenderness, normal bowel sounds. Absent: distention, guarding, rebound - Extremities Exam Extremities exam: Present: normal inspection, full ROM, normal capillary refill. Absent: tenderness, pedal edema - Back Exam Back exam: Present: normal inspection, full ROM. Absent: tenderness - Neurological Exam Neurological exam: Present: alert, oriented X3, CN II-XII intact, motor sensory deficit (left sided weakness) - Psychiatric Psychiatric exam: Present: normal affect, normal mood - Skin Skin exam: Present: warm, dry, intact, normal color Course Course Narrative: Medical decision making: Patient was evaluated by his primary care Dr. Wyman who decided to admit him for continued pain control and to continue the discussion regarding kidney stone treatment, pain control, and stroke treatment and rehab. Disposition Clinical Impression: Left-sided cerebrovascular accident (CVA), Calculus of kidney Case discussed with: patient, patient's family Disposition: Still a Patient Condition: Stable Time of Disposition: 16:14
[2017-03-31] MEDS ORDERED: ONDANSETRON 4 MG/2 ML VIAL IV PRN (16:37)
--- NOTE | 2017-03-31 18:19 | Family Practice History&Phys ---
Assessment and Plan (1) Calculus of kidney Status: Acute Assessment and plan: 03/31/2017: I am going to get urology to see him while in the hospital. We are going to have to hold his blood thinner before we can do anything. I am going to put a Cabrera catheter in him for now and treat him for pain Current Visit: Yes (2) Left-sided cerebrovascular accident (CVA) Status: Chronic Assessment and plan: 03/31/2017: He continues to have fairly significant deficits involving his left side with only gross motor movement of his left lower extremity. Current Visit: Yes (3) CRF (chronic renal failure) Status: Acute Assessment and plan: 03/31/2017: He does have renal insufficiency chronically which is acutely becoming worse. I will ask nephrology to stage this. Current Visit: No (4) Urethral pain Status: Acute Assessment and plan: 03/31/2017: I am going to put a catheter in him at this time and will treat him with pain medications and appreciate urology consult on this Current Visit: Yes History of Present Illness Chief complaint: Status post CVA, left sided deficits, dysuria History of present illness: Mr. Ventura is a 81 year old male Who was recently diagnosed with a stroke involving basically the entire left side of his body, and the left side of his face.. The distribution of the infarct revealed right middle cerebral artery involvement. (Has also been diagnosed with ureteral stones the largest being 9 mm in size.) There was a small extension of his infarct despite being placed on anticoagulants. During the course of hospitalization he did not have significant flank pain. He was subsequently sent to [facility] rehab for treatment and hoping for some residual recovery. He has not made a lot of progress with regards to this. At this time he was discharged from rehab unit and it was felt that [facility] would be the appropriate next step however the family was very concerned about his kidney stone and the fact that he was having significant pain particularly in the urethral area and the fact that his creatinine was elevated. Had long discussion and relate that his creatinine was probably not elevated due to the kidney stone but due to other factors including medications. These have been stopped and we did get a nephrology consult who made changes with the medicines. Nonetheless they are very concerned and he is having significant urethral pain, and he has some confusion. I will go ahead and admit him since this is intractable and see if we can get this under control with the hope of getting him to rehab in the next couple of days. I discussed this at length with with his daughter and other relative. I will going to put in a consult for Dr. Maravilla who has been following him from a urologic standpoint. Will continue anticoagulant until and if the family decides they want to stop this to look at the possibility of having lithotripsy performed. Home Medications Medication Instructions Recorded Confirmed Type Alfuzosin [Uroxatral] 10 mg PO DAILY 10/17/16 03/31/17 History [place]-3 Fatty Acids [Fish Oil 1,000 mg PO DAILY 10/17/16 03/31/17 History Concentrate] Acetaminophen Tab [Tylenol Tab] 500 mg PO Q4H 03/18/17 03/31/17 History Losartan Potassium 50 mg PO DAILY 03/18/17 03/31/17 History Apixaban [Eliquis] 2.5 mg PO BID tablet 03/21/17 03/31/17 Rx Docusate Sodium Cap [Colace Cap] 100 mg PO BID capsule 03/21/17 03/31/17 Rx HYDROcodone/ACETAMIN 7.5-325 1 tablet PO Q4H PRN 03/21/17 03/31/17 History [[place] 7.5-325] Lisinopril [Prinivil] 10 mg PO DAILY tablet 03/21/17 03/31/17 Rx Loratadine Tab [Claritin Tab] 10 mg PO DAILY PRN tablet 03/21/17 03/31/17 Rx Magnesium Hydroxide Susp [Milk of 45 ml PO BID PRN 03/21/17 03/31/17 Rx Magnesia] Pantoprazole Tab [Protonix Tab] 40 mg PO DAILY tablet 03/21/17 03/31/17 Rx methylPREDNISolone TAB [Medrol] 4 mg PO DAILY tablet 03/21/17 03/31/17 Rx FLUoxetine [PROzac] 20 mg PO DAILY capsule 03/31/17 03/31/17 Rx Sulfameth/Trimeth 800-160 Tab 1 tablet PO BID #6 tablet 03/31/17 03/31/17 Rx [Bactrim DS Tab] Allergies Allergy/AdvReac Type Severity Reaction Status Date / Time Penicillins Allergy RASH Verified 03/21/17 18:56 12 point system: reviewed and no additional remarkable complaints except as stated (That mentioned in the history and physical) - Constitutional Constitutional: Present: as per HPI - EENT Eyes: Present: as per HPI Nose, mouth and throat: Present: as per HPI - Cardiovascular Cardiovascular: Absent: chest pain at rest Medical,Surgical,& Family Hx - Medical History Cardio: History of: Hypertension Neurology: History of: Cerebrovascular Accident (Left sided weakness) HEENT: History of: Eye Problem (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) Genitourinary: History of: Kidney Stones, Prostate Problems (history of prostate cancer) Gastrointestinal: History of: GI Problems (occasional constipation.) Musculoskeletal: History of: Back/Neck Problems (Back pain), Musculoskeletal Problems (arthritis) - Surgical History Abdominal Surgeries: Surgical HX of: Colonoscopy, EGD Reproductive Surgeries: Surgical HX of;: Prostate Surgery (seeds planted with prostate cancer) - Family History Family History: Reports;: Family Cancer, Family Heart Disease - Social History Smoking Status: Never smoker Exam - Constitutional Vitals: Period Temp Pulse Resp BP Sys/Nixon Pulse Ox Last 24 Hr 98.0 F 87-102 18-20 116-152/52-57 97 Exam: Patient has left sided residual deficits from right middle cerebral artery stroke. He is able to move his leg but basically has no movement of his arm. He is alert and does answer most questions although he has intermittent periods of confusion. HEENT neck is supple trachea is midline, has weakness in his mouth and eyebrows on the left. Cardiovascular rate is regular no gallop or rub 1/6 systolic ejection murmur Lungs are clear no rales rhonchi Abdomen soft nondistended Genitourinary patient is holding his penis stating that is hurting especially when he voids. Neurological please see note above Quality Measures - VTE Contraindication to Pharmacological VTE Prophylaxis: Already on Theraputic Agent , No Prophylaxis Needed
[2017-03-31] MEDS: SODIUM CHLORIDE 0.9% 1,000 ML IV SCH (18:45)
[2017-03-31 20:14] LABS: Basophils % 0.1 % (0.0-0.8); Eosinophils % 0.2 % (0.00-10.9); Hematocrit 47.2 VOL% (42.0-52.0); Hemoglobin 15.7 GM/DL (14.0-18.0); Immature Granulocytes % 0.8 %; Lymphocytes # 0.6 10*3/uL (1.4-4.0); Lymphocytes % 5.2 % (21.2-54.2); Mean Corpuscular HGB Conc 33.3 GM/DL (32-36); Mean Corpuscular Hemoglobin 31 PG (27-34); Mean Corpuscular Volume 92.2 FL (87-102); Mean Platelet Volume 10.4 FL (9.6-12.0); Monocytes # 0.7 10*3/uL (0.11-0.8); Monocytes % 5.4 % (1.7-12.7); Neutrophils # 10.6 10*3/uL (1.4-7.4); Neutrophils % 88.3 % (38.7-73.9); Platelet Count 213 T/CUMM (130-400); Red Blood Count 5.12 MC/CUMM (3.8-5.5); Red Cell Distribution Width 13.8 % (9.3-17.3)
[2017-03-31 20:35] LABS: Albumin 3.8 G/DL (3.4-5.0); Bilirubin,Total 0.6 MG/DL (0.2-1.0); Calcium 8.4 MG/DL (8.5-10.1); Osmolality,Calculated 323.6 MOS/KG (273-304); Potassium 5.9 MMOL/L (3.5-5.1); Total Protein 6.8 G/DL (6.4-8.3)
[2017-03-31] MEDS ORDERED: PHENAZOPYRIDINE 95 MG TABLET PO ONE (21:00)
[2017-03-31] MEDS ORDERED: CYANOCOBALAMIN 1000 MCG/1 ML VIAL IM ONE (21:00)
[2017-03-31] MEDS ORDERED: SODIUM POLYSTYRENE SULFATE 15 GM/60 ML BOTTLE PO STA (21:07)
[2017-03-31] MEDS ORDERED: MAGNESIUM HYDROXIDE SUSP 30 ML UDCUP PO PRN (21:38)
[2017-03-31 21:46] LABS: Apearance,Urine Slightly Hazy (Clear); Bacteria,Urine Occasional /HPF (Few); Bilirubin,Urine Negative (Negative); Blood, Urine Large mg/dL (Negative); Glucose,Urine (UA) Negative (Negative); Granular Casts,Urine 2 /LPF (0-1); Ketones,Urine Negative (Negative); Mucus,Urine Occasional /LPF (Occasional); Nitrite,Urine Negative (Negative); Protein,Urine Negative; RBC,Urine 100 /HPF (0-4); Urine Color Yellow (Yellow); Urine Specific Gravity 1.013 (1.001-1.035); Urine Urobilinogen < 2.0 EU/DL (0.2-1.0); WBC,Urine 4 /HPF (0-6)
[2017-03-31] MEDS: traZODone 50 MG TABLET PO PRN (22:21)
[2017-03-31] MEDS: DOCUSATE SODIUM 100 MG CAPSULE PO SCH (22:21)
[2017-03-31] MEDS: APIXABAN 2.5 MG TABLET PO SCH (22:21)
[2017-03-31] MEDS: MULTIVITAMIN (CENTRUM) TABLET PO SCH (22:22)
[2017-03-31] MEDS: cefTRIAXone 1,000 MG in SODIUM CHLORIDE 0.9% 100 ML IV SCH (22:23)
[2017-04-01 06:15] LABS: Calcium 8.3 MG/DL (8.5-10.1)
[2017-04-01 06:16] LABS: Osmolality,Calculated 329.3 MOS/KG (273-304); Potassium 5.6 MMOL/L (3.5-5.1)
--- NOTE | 2017-04-01 07:50 | Urology Consultation ---
History of Present Illness - Data of Consult Consult date: 04/01/17 - Consult Narrative History of present illness: Mr. Ventura is a 81 year old male The patient is known to me. He was seen recently in the emergency room and a CT scan there showed a large mid ureteral stone. The patient was having neurological symptoms at that time and any other intervention was delayed. Urinalysis shows hematuria but no pyuria and the patient still has recurrent pain. I am going to get a KUB to see if there is any change in the position of the stone and if we can stop anticoagulation we can go ahead with lithotripsy the first of next week. If this is not possible alternative plan would be to put in a ureteral stent CC: Jung Wyman, DO - Home Medications and Allergies Home Medications: Home Medications Medication Instructions Recorded Confirmed Type Alfuzosin [Uroxatral] 10 mg PO DAILY 10/17/16 03/31/17 History [place]-3 Fatty Acids [Fish Oil 1,000 mg PO DAILY 10/17/16 03/31/17 History Concentrate] Acetaminophen Tab [Tylenol Tab] 500 mg PO Q4H 03/18/17 03/31/17 History Losartan Potassium 50 mg PO DAILY 03/18/17 03/31/17 History Apixaban [Eliquis] 2.5 mg PO BID tablet 03/21/17 03/31/17 Rx Docusate Sodium Cap [Colace Cap] 100 mg PO BID capsule 03/21/17 03/31/17 Rx HYDROcodone/ACETAMIN 7.5-325 1 tablet PO Q4H PRN 03/21/17 03/31/17 History [[place] 7.5-325] Lisinopril [Prinivil] 10 mg PO DAILY tablet 03/21/17 03/31/17 Rx Loratadine Tab [Claritin Tab] 10 mg PO DAILY PRN tablet 03/21/17 03/31/17 Rx Magnesium Hydroxide Susp [Milk of 45 ml PO BID PRN 03/21/17 03/31/17 Rx Magnesia] Pantoprazole Tab [Protonix Tab] 40 mg PO DAILY tablet 03/21/17 03/31/17 Rx methylPREDNISolone TAB [Medrol] 4 mg PO DAILY tablet 03/21/17 03/31/17 Rx FLUoxetine [PROzac] 20 mg PO DAILY capsule 03/31/17 03/31/17 Rx Sulfameth/Trimeth 800-160 Tab 1 tablet PO BID #6 tablet 03/31/17 03/31/17 Rx [Bactrim DS Tab] Allergies/Adverse Reactions: Allergies Allergy/AdvReac Type Severity Reaction Status Date / Time Penicillins Allergy RASH Verified 03/21/17 18:56 Exam - Constitutional Vitals: Period Temp Pulse Resp BP Sys/Nixon Pulse Ox Last 24 Hr 97.6 F-98.2 F 81-102 18-20 116-176/52-85 88-97 Results - Labs CBC & BMP: 03/31/17 20:03 04/01/17 05:15
--- NOTE | 2017-04-01 09:05 | XRay Report ---
History: Kidney stone Date: 04/01/2017 Study: KUB Comparison exam: March 19, 2017 The bowel is pattern is nonobstructive without gross mass lesion. The previously noted left ureteral stone has migrated distally approximately 4 cm since the previous exam. There is a residual 9.4 x 7.0 mm stone fragment overlying the mid to distal left ureteral level, superimposed over the left sacral alar. The exam is otherwise unchanged. Prostate seed implants overlie the pelvis at the midline. 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 Impression: The previously noted left ureteral stone persists, though this has migrated 4 cm distally since the previous study. A largest ureteral stone fragment of 9.4 mm remains PROCEDURE INTERPRETED AT [facility] DEPARTMENT OF RADIOLOGY Final Report Signed by: Dr. Daily Chang
[2017-04-01] MEDS: ALFUZOSIN 10 MG TABLET PO SCH (09:18)
[2017-04-01] MEDS: methylPREDNISolone 4 MG TABLET PO SCH (09:18)
[2017-04-01] MEDS: MULTIVITAMIN (CENTRUM) TABLET PO SCH (09:18)
[2017-04-01] MEDS: PANTOPRAZOLE 40 MG TABLET PO SCH (09:19)
[2017-04-01] MEDS: FLUoxetine 20 MG CAPSULE PO SCH (09:19)
[2017-04-01] MEDS: APIXABAN 2.5 MG TABLET PO SCH (09:19)
[2017-04-01] MEDS: DOCUSATE SODIUM 100 MG CAPSULE PO SCH (09:19)
[2017-04-01] MEDS ORDERED: SKIN HEALING OINT (AQUAPHOR) 50 GM TUBE TOP PRN (10:38)
--- NOTE | 2017-04-01 12:01 | Nephrology Consult Note ---
History of Present Illness Chief complaint: Chronic kidney disease acute on chronic kidney disease History of present illness: Mr. Ventura is a 81 year old male hypertension chronic kidney disease CVA and renal stone was transferred from rehab hospital for worsening kidney failure. The patient was receiving Bactrim as well as ANIYAH and ARB therapy. Serum creatinine is slowly trending down. Serum potassium is improving. Nephrology continue to follow this patient in consultation. Moreover he is getting further workup regarding his ureteral stone. No fevers or chills. Home Medications Medication Instructions Recorded Confirmed Type Alfuzosin [Uroxatral] 10 mg PO DAILY 10/17/16 03/31/17 History [place]-3 Fatty Acids [Fish Oil 1,000 mg PO DAILY 10/17/16 03/31/17 History Concentrate] Acetaminophen Tab [Tylenol Tab] 500 mg PO Q4H 03/18/17 03/31/17 History Losartan Potassium 50 mg PO DAILY 03/18/17 03/31/17 History Apixaban [Eliquis] 2.5 mg PO BID tablet 03/21/17 03/31/17 Rx Docusate Sodium Cap [Colace Cap] 100 mg PO BID capsule 03/21/17 03/31/17 Rx HYDROcodone/ACETAMIN 7.5-325 1 tablet PO Q4H PRN 03/21/17 03/31/17 History [[place] 7.5-325] Lisinopril [Prinivil] 10 mg PO DAILY tablet 03/21/17 03/31/17 Rx Loratadine Tab [Claritin Tab] 10 mg PO DAILY PRN tablet 03/21/17 03/31/17 Rx Magnesium Hydroxide Susp [Milk of 45 ml PO BID PRN 03/21/17 03/31/17 Rx Magnesia] Pantoprazole Tab [Protonix Tab] 40 mg PO DAILY tablet 03/21/17 03/31/17 Rx methylPREDNISolone TAB [Medrol] 4 mg PO DAILY tablet 03/21/17 03/31/17 Rx FLUoxetine [PROzac] 20 mg PO DAILY capsule 03/31/17 03/31/17 Rx Sulfameth/Trimeth 800-160 Tab 1 tablet PO BID #6 tablet 03/31/17 03/31/17 Rx [Bactrim DS Tab] Allergies Allergy/AdvReac Type Severity Reaction Status Date / Time Penicillins Allergy RASH Verified 03/21/17 18:56 Medical,Surgical,& Family Hx - Medical History Cardio: History of: Hypertension Neurology: History of: Cerebrovascular Accident (Left sided weakness) HEENT: History of: Eye Problem (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) Genitourinary: History of: Kidney Stones, Prostate Problems (history of prostate cancer) Gastrointestinal: History of: GI Problems (occasional constipation.) Musculoskeletal: History of: Back/Neck Problems (Back pain), Musculoskeletal Problems (arthritis) - Surgical History Abdominal Surgeries: Surgical HX of: Colonoscopy, EGD Reproductive Surgeries: Surgical HX of;: Prostate Surgery (seeds planted with prostate cancer) - Family History Family History: Reports;: Family Cancer, Family Heart Disease - Social History Smoking Status: Never smoker Frequency of Alcohol Use: None Type of Drug Use: None Review of Systems ROS unobtainable: other (Recent stroke.) Exam - Vital Signs Vital signs: Period Temp Pulse Resp BP Sys/Nixon Pulse Ox Last 24 Hr 97.4 F-98.2 F 79-102 16-20 116-176/52-85 88-97 - General Appearance General appearance: fatigue, frail EENT: ATNC Neck: supple Respiratory: clear Cardiology: no edema, regular rate, regular rhythm Gastrointestinal: normoactive bowel sounds, no tenderness, no guarding Musculoskeletal: no clubbing Psychiatric: mood/affect appropriate Results - Labs CBC & BMP: 03/31/17 20:03 04/01/17 05:15 Assessment and Plan (1) Chronic kidney disease Status: Chronic Current Visit: No Qualifiers: Chronic kidney disease stage: stage 3 (moderate) Qualified Code(s): N18.3 - Chronic kidney disease, stage 3 (moderate) (2) Calculus of kidney Status: Acute Current Visit: Yes (3) CRF (chronic renal failure) Status: Acute Current Visit: No (4) Left-sided cerebrovascular accident (CVA) Status: Chronic Current Visit: Yes
[2017-04-01] MEDS: DESITIN 4OZ/NYSTATIN 15 GRAM MIXTURE PASTE TOP SCH ×2 (12:11→21:45)
--- NOTE | 2017-04-01 14:41 | Family Practice Progress Note ---
Family Practice - PN: Subj Interval history: Patient seen. Discussed with the family the options. They have a strong desire to stop the anticoagulants and try to get this kidney stone issue resolved. I discussed with both urology and neurology. Although there is an increased risk for further extension of CVA. The patient wants to pursue this. We will plan on watching him over the next several days and hopefully we can get the lithotripsy done next week. 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 Seems to be moving the left leg a little better HEENT neck is supple trachea is midline, has weakness in his mouth and eyebrows on the left. Cardiovascular rate is regular no gallop or rub 1/6 systolic ejection murmur Lungs are clear no rales rhonchi Abdomen soft nondistended Genitourinary, patient does have a kidney stone left side. A KUB is pending Neurological please see note above Results - Labs CBC & BMP: 03/31/17 20:03 04/01/17 05:15 Assessment and Plan (1) Calculus of kidney Status: Acute Assessment and plan: 03/31/2017: I am going to get urology to see him while in the hospital. We are going to have to hold his blood thinner before we can do anything. I am going to put a Cabrera catheter in him for now and treat him for pain Current Visit: Yes (2) Left-sided cerebrovascular accident (CVA) Status: Chronic Assessment and plan: 03/31/2017: He continues to have fairly significant deficits involving his left side with only gross motor movement of his left lower extremity. Current Visit: Yes (3) CRF (chronic renal failure) Status: Acute Assessment and plan: 03/31/2017: He does have renal insufficiency chronically which is acutely becoming worse. I will ask nephrology to stage this. Current Visit: No (4) Urethral pain Status: Acute Assessment and plan: 03/31/2017: I am going to put a catheter in him at this time and will treat him with pain medications and appreciate urology consult on this Current Visit: Yes Quality Measures - VTE Contraindication to Pharmacological VTE Prophylaxis: Already on Theraputic Agent , No Prophylaxis Needed
[2017-04-01] MEDS: SODIUM CHLORIDE 0.9% 1,000 ML IV SCH (15:40)
[2017-04-01] MEDS ORDERED: MULTIVITAMIN (CENTRUM) TABLET PO SCH (21:00)
[2017-04-01] MEDS ORDERED: LORazepam 2 MG/1 ML VIAL IV ONE (21:30)
[2017-04-01] MEDS: cefTRIAXone 1,000 MG in SODIUM CHLORIDE 0.9% 100 ML IV SCH (21:45)
[2017-04-02] MEDS: DOCUSATE SODIUM 100 MG CAPSULE PO SCH ×3 (04:00→20:27)
[2017-04-02 06:34] LABS: Calcium 8.5 MG/DL (8.5-10.1); Osmolality,Calculated 333.4 MOS/KG (273-304); Potassium 5.4 MMOL/L (3.5-5.1)
[2017-04-02 06:38] LABS: Calcium 8.6 MG/DL (8.5-10.1); Magnesium 3.4 MG/DL (1.8-2.4); Osmolality,Calculated 334.4 MOS/KG (273-304); Potassium 5.4 MMOL/L (3.5-5.1)
--- NOTE | 2017-04-02 07:36 | Urology Progress Note ---
Urology - PN: Subj Interval history: KUB yesterday shows that the 9 mm left ureteral stone has progressed slightly more distally. A smaller 5 mm left renal pelvic stone is not seen on KUB. The patient is now off of Eliquis and I can plan shockwave lithotripsy Friday if cleared medically Exam - Constitutional Vitals: Period Temp Pulse Resp BP Sys/Nixon Pulse Ox Last 24 Hr 97.1 F-98.3 F 76-80 16-20 143-160/58-80 94-97 Results - Labs CBC & BMP: 03/31/17 20:03 04/02/17 05:30
[2017-04-02] MEDS ORDERED: SODIUM CHLORIDE 0.45% 1,000 ML IV SCH ×2 (08:30)
--- NOTE | 2017-04-02 08:51 | Family Practice Progress Note ---
Family Practice - PN: Subj Interval history: Patient seen this morning. He is on unchanged from a neurologic standpoint. He generally coherent and answers questions well. Still not moving left side very well. His vitals are stable at present. We do have him off Eliquis got him on aspirin and I plan on bridging him with Lovenox 30 mg subcu daily. Creatinine has come down slightly. Potassium is down to 5.4 still high however. We will continue IV fluids. Sodium has actually gone up and we are going to change him to one half normal saline. 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 Seems to be moving the left leg a little better HEENT neck is supple trachea is midline, has weakness in his mouth and eyebrows on the left. Cardiovascular rate is regular no gallop or rub 1/6 systolic ejection murmur Lungs are clear no rales rhonchi Abdomen soft nondistended Genitourinary, patient does have a kidney stone left side. per KUB Neurological please see note above Results - Labs CBC & BMP: 03/31/17 20:03 04/02/17 05:30 Assessment and Plan (1) Calculus of kidney Status: Acute Assessment and plan: 03/31/2017: I am going to get urology to see him while in the hospital. We are going to have to hold his blood thinner before we can do anything. I am going to put a Cabrera catheter in him for now and treat him for pain 04/02/2017: Patient continues to have the stones per KUB. We are going to hold his Eliquis and put him on bridge with Lovenox for a few days Current Visit: Yes (2) Left-sided cerebrovascular accident (CVA) Status: Chronic Assessment and plan: 03/31/2017: He continues to have fairly significant deficits involving his left side with only gross motor movement of his left lower extremity. 04/02/2017: Continue current regimen and PT OT Current Visit: Yes (3) CRF (chronic renal failure) Status: Acute Assessment and plan: 03/31/2017: He does have renal insufficiency chronically which is acutely becoming worse. I will ask nephrology to stage this. 04/02/2017: Creatinine is slowly coming down still elevated quite significantly. We are going to continue to watch his drugs that are nephrotoxic Current Visit: No (4) Urethral pain Status: Acute Assessment and plan: 03/31/2017: I am going to put a catheter in him at this time and will treat him with pain medications and appreciate urology consult on this 04/02/2017: Not having any urethral pain at this time Current Visit: Yes (5) Acute hypernatremia Status: Acute Assessment and plan: 04/02/2017: Following this with nephrology. Going to change from normal saline to one half normal saline Current Visit: Yes (6) Acute hyperkalemia Status: Acute Assessment and plan: 04/02/2017: This is slowly coming down. We will continue to monitor closely Current Visit: Yes Quality Measures - VTE Contraindication to Pharmacological VTE Prophylaxis: Already on Theraputic Agent , No Prophylaxis Needed
[2017-04-02] MEDS: PANTOPRAZOLE 40 MG TABLET PO SCH (08:52)
[2017-04-02] MEDS: MULTIVITAMIN (CENTRUM) TABLET PO SCH (08:52)
[2017-04-02] MEDS: ASPIRIN EC 325 MG TABLET PO SCH (08:52)
[2017-04-02] MEDS: ALFUZOSIN 10 MG TABLET PO SCH (08:52)
[2017-04-02] MEDS: methylPREDNISolone 4 MG TABLET PO SCH (08:52)
[2017-04-02] MEDS: ENOXAPARIN 30 MG/0.3 ML SYRINGE SUBCUT SCH (08:52)
[2017-04-02] MEDS: FLUoxetine 20 MG CAPSULE PO SCH (08:52)
[2017-04-02] MEDS: DESITIN 4OZ/NYSTATIN 15 GRAM MIXTURE PASTE TOP SCH ×2 (08:53→20:58)
--- NOTE | 2017-04-02 15:27 | Nephrology Progress Note ---
Nephrology - PN: Subj Interval history: Patient is resting comfortably. Serum creatinine is trending down to 3.9. Of note serum sodium is 154 will increase free water via changing IV fluids to D5W at 75 cc an hour. Repeat BMP in a.m. Exam (PN)-Nephrology - Vital Signs Vital signs: Period Temp Pulse Resp BP Sys/Nixon Pulse Ox Last 24 Hr 97.1 F-98.3 F 52-80 18-20 107-160/53-80 94-98 - General Appearance General appearance: well-developed, well-nourished EENT: ATNC Neck: supple Respiratory: clear Cardiology: no edema, regular rate, regular rhythm Gastrointestinal: normoactive bowel sounds, no tenderness Integumentary: no rash Musculoskeletal: no clubbing - Lab 03/31/17 20:03 04/02/17 05:30 Most recent lab results Calcium 8.6 MG/DL (8.5-10.1) 04/02/17 05:30 Magnesium 3.4 MG/DL (1.8-2.4) H 04/02/17 05:30 Assessment and Plan (1) Chronic kidney disease Status: Chronic Assessment and plan: Acute on chronic renal failure. Renal functions continue to improve. Current Visit: No Qualifiers: Chronic kidney disease stage: stage 3 (moderate) Qualified Code(s): N18.3 - Chronic kidney disease, stage 3 (moderate) (2) Calculus of kidney Status: Acute Current Visit: Yes (3) CRF (chronic renal failure) Status: Chronic Current Visit: No Qualifiers: Chronic kidney disease stage: stage 3 (moderate) Qualified Code(s): N18.3 - Chronic kidney disease, stage 3 (moderate) (4) Left-sided cerebrovascular accident (CVA) Status: Chronic Current Visit: Yes (5) Hypernatremia Status: Acute Assessment and plan: Change IV fluids to D5W at 75 cc an hour. Over the next 12 hours patient should get approximately 1 L of free water. Current Visit: Yes
[2017-04-02] MEDS: DEXTROSE 5% 1,000 ML IV SCH (15:37)
[2017-04-02] MEDS: traZODone 50 MG TABLET PO PRN (20:51)
[2017-04-02] MEDS: cefTRIAXone 1,000 MG in SODIUM CHLORIDE 0.9% 100 ML IV SCH (20:51)
[2017-04-03] MEDS ORDERED: LORazepam 2 MG/1 ML VIAL ONE (00:23)
[2017-04-03] MEDS: LORazepam 2 MG/1 ML VIAL IV PRN ×2 (00:26→21:03)
[2017-04-03 06:44] LABS: Calcium 8.9 MG/DL (8.5-10.1); Osmolality,Calculated 319.9 MOS/KG (273-304); Potassium 5.3 MMOL/L (3.5-5.1)
[2017-04-03] MEDS: DEXTROSE 5% 1,000 ML IV SCH (06:52)
--- NOTE | 2017-04-03 07:55 | Urology Progress Note ---
Urology - PN: Subj Interval history: I have tentatively schedule patient for lithotripsy on Friday if he is cleared medically. This is usually done as an outpatient so the patient can be discharged as needed and return Friday morning n.p.o. he could resume anticoagulation Friday night after the lithotripsy procedure. Exam - Constitutional Vitals: Period Temp Pulse Resp BP Sys/Nixon Pulse Ox Last 24 Hr 97.7 F-98.6 F 52-112 20-22 107-160/53-95 20-98 Results - Labs CBC & BMP: 03/31/17 20:03 04/03/17 05:57
--- NOTE | 2017-04-03 09:15 | Family Practice Progress Note ---
Family Practice - PN: Subj Interval history: Seen this morning. He is stable hemodynamically. Still confused intermittently and talking about "old times". Is moving about in bed but continues to have significant left-sided neglect. Not really able to move his left side much at all. Potassium slowly improving still hyperkalemic however and we are giving him D5W due to hypernatremia which is as well improving slowly. No fever chills nausea or vomiting. He is tolerating some of his diet. Plan on continue IV hydration with hypotonic solutions and monitor for lithotripsy this coming Friday Exam (Progress Note) - Constitutional Vitals: Period Temp Pulse Resp BP Sys/Nixon Pulse Ox Last 24 Hr 97.2 F-98.6 F 53-112 107-160/53-95 Exam: Stable hemodynamically no acute changes HEENT neck is supple trachea midline Cardiovascular rate regular no gallop or rub Lungs clear no shortness of breath Abdomen soft nondistended Left neurologic neuro deficits. Continue to monitor Results - Labs CBC & BMP: 03/31/17 20:03 04/03/17 05:57 Assessment and Plan (1) Calculus of kidney Status: Acute Assessment and plan: 03/31/2017: I am going to get urology to see him while in the hospital. We are going to have to hold his blood thinner before we can do anything. I am going to put a Cabrera catheter in him for now and treat him for pain 04/02/2017: Patient continues to have the stones per KUB. We are going to hold his Eliquis and put him on bridge with Lovenox for a few days Current Visit: Yes (2) Left-sided cerebrovascular accident (CVA) Status: Chronic Assessment and plan: 03/31/2017: He continues to have fairly significant deficits involving his left side with only gross motor movement of his left lower extremity. 04/02/2017: Continue current regimen and PT OT Current Visit: Yes (3) CRF (chronic renal failure) Status: Chronic Assessment and plan: 03/31/2017: He does have renal insufficiency chronically which is acutely becoming worse. I will ask nephrology to stage this. 04/02/2017: Creatinine is slowly coming down still elevated quite significantly. We are going to continue to watch his drugs that are nephrotoxic 04/03/2017: Continuing to hydrate and watch renal function which is slowly improving Current Visit: No Qualifiers: Chronic kidney disease stage: stage 3 (moderate) Qualified Code(s): N18.3 - Chronic kidney disease, stage 3 (moderate) (4) Urethral pain Status: Resolved Assessment and plan: 03/31/2017: I am going to put a catheter in him at this time and will treat him with pain medications and appreciate urology consult on this 04/02/2017: Not having any urethral pain at this time Current Visit: Yes (5) Acute hypernatremia Status: Acute Assessment and plan: 04/02/2017: Following this with nephrology. Going to change from normal saline to one half normal saline 04/03/2017: Hypotonic solutions are being given at this time Current Visit: Yes (6) Acute hyperkalemia Status: Acute Assessment and plan: 04/02/2017: This is slowly coming down. We will continue to monitor closely Current Visit: Yes Quality Measures - VTE Contraindication to Pharmacological VTE Prophylaxis: Already on Theraputic Agent , No Prophylaxis Needed
--- NOTE | 2017-04-03 09:27 | Nephrology Progress Note ---
Nephrology - PN: Subj Interval history: The patient is resting comfortably no acute changes. Serum sodium is continued to trend down. Continue with free water and IV. Moreover, serum creatinine is trending down. At this time continue current management. Patient is scheduled to have lithotripsy next week. Exam (PN)-Nephrology - Vital Signs Vital signs: Period Temp Pulse Resp BP Sys/Nixon Pulse Ox Last 24 Hr 97.2 F-98.6 F 53-112 18-22 107-160/53-95 20-98 - General Appearance General appearance: well-developed, frail Neck: supple Respiratory: clear Cardiology: regular rate, regular rhythm Gastrointestinal: normoactive bowel sounds, no tenderness Integumentary: no rash Musculoskeletal: no deformities, no clubbing - Lab 03/31/17 20:03 04/03/17 05:57 Most recent lab results Calcium 8.9 MG/DL (8.5-10.1) 04/03/17 05:57 Magnesium 3.4 MG/DL (1.8-2.4) H 04/02/17 05:30 Assessment and Plan (1) Chronic kidney disease Status: Chronic Assessment and plan: Acute on chronic renal failure. Renal functions continue to improve. Current Visit: No Qualifiers: Chronic kidney disease stage: stage 3 (moderate) Qualified Code(s): N18.3 - Chronic kidney disease, stage 3 (moderate) (2) Calculus of kidney Status: Acute Assessment and plan: Lithotripsy planned for next week. Current Visit: Yes (3) CRF (chronic renal failure) Status: Chronic Current Visit: No Qualifiers: Chronic kidney disease stage: stage 3 (moderate) Qualified Code(s): N18.3 - Chronic kidney disease, stage 3 (moderate) (4) Left-sided cerebrovascular accident (CVA) Status: Chronic Current Visit: Yes (5) Hypernatremia Status: Acute Assessment and plan: Change IV fluids to D5W at 75 cc an hour. Improvement in hypernatremia. Continue with IV fluids. Current Visit: Yes
[2017-04-03] MEDS: PANTOPRAZOLE 40 MG TABLET PO SCH (09:49)
[2017-04-03] MEDS: ALFUZOSIN 10 MG TABLET PO SCH (09:49)
[2017-04-03] MEDS: methylPREDNISolone 4 MG TABLET PO SCH (09:50)
[2017-04-03] MEDS: ASPIRIN EC 325 MG TABLET PO SCH (09:50)
[2017-04-03] MEDS: FLUoxetine 20 MG CAPSULE PO SCH (09:50)
[2017-04-03] MEDS: MULTIVITAMIN (CENTRUM) TABLET PO SCH (09:50)
[2017-04-03] MEDS: DOCUSATE SODIUM 100 MG CAPSULE PO SCH ×2 (09:56→21:01)
[2017-04-03] MEDS: ENOXAPARIN 30 MG/0.3 ML SYRINGE SUBCUT SCH (10:00)
[2017-04-03] MEDS: DESITIN 4OZ/NYSTATIN 15 GRAM MIXTURE PASTE TOP SCH ×2 (10:05→21:02)
[2017-04-03] MEDS: cefTRIAXone 1,000 MG in SODIUM CHLORIDE 0.9% 100 ML IV SCH (21:02)
[2017-04-04] MEDS: DEXTROSE 5% 1,000 ML IV SCH ×3 (06:39→20:57)
--- NOTE | 2017-04-04 07:34 | Urology Progress Note ---
Urology - PN: Subj Interval history: Plan lithotripsy next week if cleared medically. I would like to do this as an outpatient if possible Exam - Constitutional Vitals: Period Temp Pulse Resp BP Sys/Nixon Pulse Ox Last 24 Hr 96.7 F-98.3 F 49-113 18-20 132-154/58-80 90-98 Results - Labs CBC & BMP: 03/31/17 20:03 04/03/17 05:57
[2017-04-04] MEDS: MULTIVITAMIN (CENTRUM) TABLET PO SCH (08:45)
[2017-04-04] MEDS: DOCUSATE SODIUM 100 MG CAPSULE PO SCH ×2 (08:46→20:54)
[2017-04-04] MEDS: methylPREDNISolone 4 MG TABLET PO SCH (08:46)
[2017-04-04] MEDS: ASPIRIN EC 325 MG TABLET PO SCH (08:46)
[2017-04-04] MEDS: ALFUZOSIN 10 MG TABLET PO SCH (08:46)
[2017-04-04] MEDS: PANTOPRAZOLE 40 MG TABLET PO SCH (08:46)
[2017-04-04] MEDS: FLUoxetine 20 MG CAPSULE PO SCH (08:46)
[2017-04-04] MEDS: ENOXAPARIN 30 MG/0.3 ML SYRINGE SUBCUT SCH (08:53)
--- NOTE | 2017-04-04 09:24 | Nephrology Progress Note ---
Nephrology - PN: Subj Interval history: Patient is resting comfortably no acute changes. Continue with IV fluids. Exam (PN)-Nephrology - Vital Signs Vital signs: Period Temp Pulse Resp BP Sys/Nixon Pulse Ox Last 24 Hr 96.7 F-98.3 F 46-113 18-20 132-154/58-80 90-98 - General Appearance General appearance: well-developed, frail Neck: supple Respiratory: clear Cardiology: no edema, regular rate, regular rhythm Gastrointestinal: normoactive bowel sounds, no tenderness Integumentary: no rash Psychiatric: mood/affect appropriate - Lab 03/31/17 20:03 04/03/17 05:57 Most recent lab results Calcium 8.9 MG/DL (8.5-10.1) 04/03/17 05:57 Magnesium 3.4 MG/DL (1.8-2.4) H 04/02/17 05:30 Assessment and Plan (1) Chronic kidney disease Status: Chronic Assessment and plan: Acute on chronic renal failure. Renal functions continue to improve. Current Visit: No Qualifiers: Chronic kidney disease stage: stage 3 (moderate) Qualified Code(s): N18.3 - Chronic kidney disease, stage 3 (moderate) (2) Calculus of kidney Status: Acute Assessment and plan: Lithotripsy planned for next week. Current Visit: Yes (3) CRF (chronic renal failure) Status: Chronic Current Visit: No Qualifiers: Chronic kidney disease stage: stage 3 (moderate) Qualified Code(s): N18.3 - Chronic kidney disease, stage 3 (moderate) (4) Left-sided cerebrovascular accident (CVA) Status: Chronic Current Visit: Yes (5) Hypernatremia Status: Acute Assessment and plan: Change IV fluids to D5W at 75 cc an hour. Improvement in hypernatremia. Continue with IV fluids. Current Visit: Yes
--- NOTE | 2017-04-04 09:48 | Family Practice Progress Note ---
Family Practice - PN: Subj Interval history: Patient seen. Resting well. No acute distress still confused. His potassium and creatinine are trending down. Still on IV fluids and will continue this at this time. According to son he ate fairly well last night. I do plan on holding his Lovenox after today and will schedule for lithotripsy this coming Friday. We will plan on discharging him on that same day to [facility] rehab. Discussed this with his son and they are in full agreement. Do plan on checking lab in a.m. Exam (Progress Note) - Constitutional Vitals: Period Temp Pulse Resp BP Sys/Nixon Pulse Ox Last 24 Hr 96.7 F-98.3 F 46-113 18-20 132-154/58-80 90-98 Results - Labs CBC & BMP: 03/31/17 20:03 04/03/17 05:57 Assessment and Plan (1) Calculus of kidney Status: Acute Assessment and plan: 03/31/2017: I am going to get urology to see him while in the hospital. We are going to have to hold his blood thinner before we can do anything. I am going to put a Cabrera catheter in him for now and treat him for pain 04/02/2017: Patient continues to have the stones per KUB. We are going to hold his Eliquis and put him on bridge with Lovenox for a few days Current Visit: Yes (2) Left-sided cerebrovascular accident (CVA) Status: Chronic Assessment and plan: 03/31/2017: He continues to have fairly significant deficits involving his left side with only gross motor movement of his left lower extremity. 04/02/2017: Continue current regimen and PT OT Current Visit: Yes (3) CRF (chronic renal failure) Status: Chronic Assessment and plan: 03/31/2017: He does have renal insufficiency chronically which is acutely becoming worse. I will ask nephrology to stage this. 04/02/2017: Creatinine is slowly coming down still elevated quite significantly. We are going to continue to watch his drugs that are nephrotoxic 04/03/2017: Continuing to hydrate and watch renal function which is slowly improving Current Visit: No Qualifiers: Chronic kidney disease stage: stage 3 (moderate) Qualified Code(s): N18.3 - Chronic kidney disease, stage 3 (moderate) (4) Urethral pain Status: Resolved Assessment and plan: 03/31/2017: I am going to put a catheter in him at this time and will treat him with pain medications and appreciate urology consult on this 04/02/2017: Not having any urethral pain at this time Current Visit: Yes (5) Acute hypernatremia Status: Acute Assessment and plan: 04/02/2017: Following this with nephrology. Going to change from normal saline to one half normal saline 04/03/2017: Hypotonic solutions are being given at this time Current Visit: Yes (6) Acute hyperkalemia Status: Acute Assessment and plan: 04/02/2017: This is slowly coming down. We will continue to monitor closely Current Visit: Yes Quality Measures - VTE Contraindication to Pharmacological VTE Prophylaxis: Already on Theraputic Agent , No Prophylaxis Needed
[2017-04-04 09:52] LABS: Basophils % 0.4 % (0.0-0.8); Eosinophils # 0.3 10*3/uL (0.0-0.87); Eosinophils % 3.4 % (0.00-10.9); Hematocrit 44.5 VOL% (42.0-52.0); Hemoglobin 14.8 GM/DL (14.0-18.0); Immature Granulocytes % 0.6 %; Immature Granulocytes Absolute 0.05 #; Lymphocytes # 1.2 10*3/uL (1.4-4.0); Lymphocytes % 14.6 % (21.2-54.2); Mean Corpuscular HGB Conc 33.3 GM/DL (32-36); Mean Corpuscular Hemoglobin 31 PG (27-34); Mean Corpuscular Volume 91.8 FL (87-102); Mean Platelet Volume 10.4 FL (9.6-12.0); Monocytes # 0.4 10*3/uL (0.11-0.8); Monocytes % 5.4 % (1.7-12.7); Neutrophils # 6.2 10*3/uL (1.4-7.4); Neutrophils % 75.6 % (38.7-73.9); Platelet Count 214 T/CUMM (130-400); Red Blood Count 4.85 MC/CUMM (3.8-5.5); Red Cell Distribution Width 13.4 % (9.3-17.3); White Blood Count 8.2 T/CUMM (4-12)
[2017-04-04 10:36] LABS: Calcium 8.5 MG/DL (8.5-10.1); Osmolality,Calculated 309.4 MOS/KG (273-304); Potassium 5.7 MMOL/L (3.5-5.1)
[2017-04-04] MEDS: DESITIN 4OZ/NYSTATIN 15 GRAM MIXTURE PASTE TOP SCH ×2 (11:30→20:59)
[2017-04-04] MEDS: ACETAMINOPHEN 325 MG TABLET PO PRN (17:16)
[2017-04-04] MEDS: cefTRIAXone 1,000 MG in SODIUM CHLORIDE 0.9% 100 ML IV SCH (20:54)
[2017-04-05 03:47] LABS: Basophils % 0.5 % (0.0-0.8); Eosinophils # 0.3 10*3/uL (0.0-0.87); Eosinophils % 3.8 % (0.00-10.9); Hematocrit 42.8 VOL% (42.0-52.0); Hemoglobin 14.3 GM/DL (14.0-18.0); Immature Granulocytes % 0.9 %; Immature Granulocytes Absolute 0.07 #; Lymphocytes # 1.2 10*3/uL (1.4-4.0); Lymphocytes % 15.4 % (21.2-54.2); Mean Corpuscular HGB Conc 33.4 GM/DL (32-36); Mean Corpuscular Hemoglobin 31 PG (27-34); Mean Corpuscular Volume 91.6 FL (87-102); Mean Platelet Volume 10.4 FL (9.6-12.0); Monocytes # 0.4 10*3/uL (0.11-0.8); Monocytes % 5.3 % (1.7-12.7); Neutrophils % 74.1 % (38.7-73.9); Platelet Count 192 T/CUMM (130-400); Red Blood Count 4.67 MC/CUMM (3.8-5.5); Red Cell Distribution Width 13.1 % (9.3-17.3); White Blood Count 8.1 T/CUMM (4-12)
[2017-04-05 04:11] LABS: Calcium 7.9 MG/DL (8.5-10.1); Osmolality,Calculated 304.7 MOS/KG (273-304); Potassium 5.1 MMOL/L (3.5-5.1)
[2017-04-05 04:12] LABS: Calcium 8.6 MG/DL (8.5-10.1); Magnesium 2.5 MG/DL (1.8-2.4); Osmolality,Calculated 304.7 MOS/KG (273-304); Potassium 5.1 MMOL/L (3.5-5.1)
--- NOTE | 2017-04-05 07:14 | Family Practice Progress Note ---
Family Practice - PN: Subj Interval history: Patient states he is doing fairly well this morning and not having much pain with his kidney stone. He is scheduled to have ESWL Friday and then on to [facility] rehab. He denies any nausea vomiting is not had any fever. His vital signs are stable. Exam (Progress Note) - Constitutional Vitals: Period Temp Pulse Resp BP Sys/Nixon Pulse Ox Last 24 Hr 97.1 F-97.5 F 46-78 18-20 119-150/54-73 95-96 Exam: Objective a well-developed gentleman is awake and alert and able give good history. He keeps his left arm flexed and on his chest. He is able to answer questions appropriately. Cardiovascular: Heart rates regular without murmurs or gallops. Respiratory: The lungs clear to auscultation bilaterally. Abdomen: Abdomen soft and nontender to palpation. Neuro: Patient has flexion contracture left upper extremity, he has left central facial weakness. Results - Labs CBC & BMP: 04/05/17 03:18 04/05/17 03:18 Lab Results: I have reviewed the past 24 hour labs Assessment and Plan (1) Acute CVA (cerebrovascular accident) Status: Acute Assessment and plan: 04/05/2017: Patient scheduled [facility] first of the week. Current Visit: No (2) Calculus of kidney Status: Acute Assessment and plan: 04/05/2017: Patient scheduled for ESWL Friday Current Visit: Yes Quality Measures - VTE Contraindication to Pharmacological VTE Prophylaxis: Already on Theraputic Agent , No Prophylaxis Needed
[2017-04-05] MEDS: PANTOPRAZOLE 40 MG TABLET PO SCH (08:28)
[2017-04-05] MEDS: ALFUZOSIN 10 MG TABLET PO SCH (08:28)
[2017-04-05] MEDS: MULTIVITAMIN (CENTRUM) TABLET PO SCH (08:28)
[2017-04-05] MEDS: FLUoxetine 20 MG CAPSULE PO SCH (08:28)
[2017-04-05] MEDS: ASPIRIN EC 325 MG TABLET PO SCH (08:28)
[2017-04-05] MEDS: methylPREDNISolone 4 MG TABLET PO SCH (08:28)
[2017-04-05] MEDS: DOCUSATE SODIUM 100 MG CAPSULE PO SCH ×2 (08:28→20:52)
[2017-04-05] MEDS: DESITIN 4OZ/NYSTATIN 15 GRAM MIXTURE PASTE TOP SCH ×2 (08:29→20:52)
--- NOTE | 2017-04-05 09:19 | Urology Progress Note ---
Urology - PN: Subj Interval history: I discussed the case with Dr. Wyman yesterday. He will keep the patient until Friday morning and then discharge him to outpatient surgery where he will have lithotripsy. Patient's creatinine has improved Exam - Constitutional Vitals: Period Temp Pulse Resp BP Sys/Nixon Pulse Ox Last 24 Hr 97.1 F-98.1 F 46-78 18-20 119-141/54-73 95-96 Results - Labs CBC & BMP: 04/05/17 03:18 04/05/17 03:18
[2017-04-05] MEDS: DEXTROSE 5% 1,000 ML IV SCH ×2 (10:19→23:58)
--- NOTE | 2017-04-05 11:23 | Nephrology Progress Note ---
Nephrology - PN: Subj Interval history: He denies shortness of breath or chest pain. No flank pain or hematuria Exam (PN)-Nephrology - Vital Signs Vital signs: Period Temp Pulse Resp BP Sys/Nixon Pulse Ox Last 24 Hr 97.1 F-98.1 F 46-78 18-20 119-141/54-73 95-96 Exam: ENT: Normal Cardiovascular: Regular rate and rhythm. No murmur rub or gallop Lungs: Clear Extremities: No edema - Lab 04/05/17 03:18 04/05/17 03:18 Most recent lab results Calcium 8.6 MG/DL (8.5-10.1) 04/05/17 03:18 Magnesium 2.5 MG/DL (1.8-2.4) H 04/05/17 03:18 Assessment and Plan (1) Chronic kidney disease Status: Chronic Assessment and plan: 81-year-old man with: * CRF 3. Renal function slightly improved. Volume status normal * Nephrolithiasis * Hypernatremia. Improved * Cerebrovascular disease Current Visit: No Qualifiers: Chronic kidney disease stage: stage 3 (moderate) Qualified Code(s): N18.3 - Chronic kidney disease, stage 3 (moderate) (2) Calculus of kidney Status: Acute Current Visit: Yes (3) Hypernatremia Status: Acute Current Visit: Yes (4) Left-sided cerebrovascular accident (CVA) Status: Chronic Current Visit: Yes
[2017-04-05] MEDS: cefTRIAXone 1,000 MG in SODIUM CHLORIDE 0.9% 100 ML IV SCH (20:51)
[2017-04-06 04:08] LABS: Osmolality,Calculated 297.8 MOS/KG (273-304); Potassium 5.2 MMOL/L (3.5-5.1)
--- NOTE | 2017-04-06 07:26 | Family Practice Progress Note ---
Family Practice - PN: Subj Interval history: Patient seems to be doing fairly well this morning and has no specific complaint. I note that his renal function is slightly improved but his potassium is a tiny bit elevated at 5.2. We will repeat this in the morning. He denies any pain or discomfort associated with his kidney stone. Exam (Progress Note) - Constitutional Vitals: Period Temp Pulse Resp BP Sys/Nixon Pulse Ox Last 24 Hr 97.1 F-98.1 F 46-85 16-20 132-141/65-74 91-98 Exam: Objective a well-developed gentleman is awake and alert and able give good history. He keeps his left arm flexed and on his chest. He is able to answer questions appropriately. Cardiovascular: Heart rates regular without murmurs or gallops. Respiratory: The lungs clear to auscultation bilaterally. Abdomen: Abdomen soft and nontender to palpation. Neuro: Patient has flexion contracture left upper extremity, he has left central facial weakness. Results - Labs CBC & BMP: 04/05/17 03:18 04/06/17 02:16 Lab Results: I have reviewed the past 24 hour labs Assessment and Plan (1) Acute CVA (cerebrovascular accident) Status: Acute Assessment and plan: 04/05/2017: Patient scheduled [facility] first of the week. 04/06/2017: Patient is unchanged from yesterday. Current Visit: No (2) Calculus of kidney Status: Acute Assessment and plan: 04/05/2017: Patient scheduled for ESWL Friday04/06/2017: ESWL has been scheduled Current Visit: Yes Quality Measures - VTE Contraindication to Pharmacological VTE Prophylaxis: Already on Theraputic Agent , No Prophylaxis Needed
[2017-04-06] MEDS: DOCUSATE SODIUM 100 MG CAPSULE PO SCH ×2 (08:01→20:41)
[2017-04-06] MEDS: MULTIVITAMIN (CENTRUM) TABLET PO SCH (08:12)
[2017-04-06] MEDS: ALFUZOSIN 10 MG TABLET PO SCH (08:12)
[2017-04-06] MEDS: ASPIRIN EC 325 MG TABLET PO SCH (08:13)
[2017-04-06] MEDS: ACETAMINOPHEN 325 MG TABLET PO PRN (08:13)
[2017-04-06] MEDS: methylPREDNISolone 4 MG TABLET PO SCH (08:13)
[2017-04-06] MEDS: PANTOPRAZOLE 40 MG TABLET PO SCH (08:13)
[2017-04-06] MEDS: FLUoxetine 20 MG CAPSULE PO SCH (08:13)
[2017-04-06] MEDS: DESITIN 4OZ/NYSTATIN 15 GRAM MIXTURE PASTE TOP SCH ×2 (08:14→20:42)
--- NOTE | 2017-04-06 10:28 | Urology Progress Note ---
Urology - PN: Subj Interval history: Plan lithotripsy as an outpatient tomorrow Exam - Constitutional Vitals: Period Temp Pulse Resp BP Sys/Nixon Pulse Ox Last 24 Hr 97.1 F-97.9 F 46-85 16-20 132-144/65-80 91-99 Results - Labs CBC & BMP: 04/05/17 03:18 04/06/17 02:16
[2017-04-06] MEDS: DEXTROSE 5% 1,000 ML IV SCH (12:50)
--- NOTE | 2017-04-06 13:28 | Nephrology Progress Note ---
Nephrology - PN: Subj Interval history: No flank pain. No S OB Exam (PN)-Nephrology - Vital Signs Vital signs: Period Temp Pulse Resp BP Sys/Nixon Pulse Ox Last 24 Hr 97.0 F-97.7 F 48-85 18-20 132-144/65-80 91-100 Exam: ENT: Normal Cardiovascular: Regular rate and rhythm. No murmur rub or gallop Lungs: Clear Extremities: No edema - Lab 04/05/17 03:18 04/06/17 02:16 Most recent lab results Calcium 8.0 MG/DL (8.5-10.1) L 04/06/17 02:16 Magnesium 2.5 MG/DL (1.8-2.4) H 04/05/17 03:18 Assessment and Plan (1) Chronic kidney disease Status: Chronic Assessment and plan: 81-year-old man with: * CRF 3. Renal function improving * Nephrolithiasis * Hypernatremia. Improved * Cerebrovascular disease Current Visit: No Qualifiers: Chronic kidney disease stage: stage 3 (moderate) Qualified Code(s): N18.3 - Chronic kidney disease, stage 3 (moderate) (2) Calculus of kidney Status: Acute Current Visit: Yes (3) Hypernatremia Status: Acute Current Visit: Yes (4) Left-sided cerebrovascular accident (CVA) Status: Chronic Current Visit: Yes
[2017-04-06] MEDS: cefTRIAXone 1,000 MG in SODIUM CHLORIDE 0.9% 100 ML IV SCH (20:41)
[2017-04-07] MEDS: DEXTROSE 5% 1,000 ML IV SCH (00:56)
[2017-04-07 05:49] LABS: Calcium 7.8 MG/DL (8.5-10.1); Osmolality,Calculated 287.3 MOS/KG (273-304)
--- NOTE | 2017-04-07 06:47 | Discharge Summary ---
Hospital Course - Hospital Course Hospital Course: Patient seen this morning. No overall change. We are planning on discharging today to first go to lithotripsy and from there to [facility]. Patient came in with left-sided CVA and also had a 9 mm kidney stone in his left ureter. He had some elevated creatinine, which was managed by monitoring and adjusting medications as well as careful fluid management. Creatinine has come down to 1.9 which is pretty much his baseline. In addition, he has continued to have basically very limited function of his lower left extremity and no function of his left upper extremity. We have held his blood thinners to have lithotripsy done today to remove the kidney stone and will restart them after he gets back to [facility]. Also had some urethral pain, was on antibiotics through the hospitalization and mild hypernatremia and hypercalcemia. These are in tolerable limits right now. I would encourage fluids, particularly water at the senior living. Patient is going to need significant, structured rehabilitation. We'll talk with family and discuss interval findings and plan Diagnosis - Discharge Diagnosis (1) Calculus of kidney Status: Acute (2) Left-sided cerebrovascular accident (CVA) Status: Chronic (3) CRF (chronic renal failure) Status: Chronic (4) Urethral pain Status: Resolved (5) Acute hypernatremia Status: Acute (6) Acute hyperkalemia Status: Acute Specialty Discharge - Follow Up or Referrals Follow up with: Jung Wyman DO [Primary Care Provider] - 2 Weeks (2 weeks post discharge from rehab - Call to schedule after you leave rehab. ) Discharge Plan - Discharge Data Disposition: Disch/Xfer-Ip Rehab Fac Condition at Discharge: Stable Discharge Diet: advance to your usual diet Activity: as per physical therapy Hygiene: no restrictions Weight Bearing at Discharge: other (per therapy) Driving: other (not for) Contact your physician if you experience:: Difficulty voiding, Redness or swelling - Discharge Medications New Acetaminophen Tab [Tylenol Tab] 650 mg PO Q6H PRN tablet PRN Reason: Fever > 100.4 Or Headache Aspirin EC Tab 325 mg PO DAILY tablet Multivitamin (Centrum) [Centrum Tab] 1 tablet PO DAILY tablet Pantoprazole Tab [Protonix Tab] 40 mg PO DAILY tablet Skin Healing Oint (Aquaphor) [Aquaphor] 1 applic TOP PRN PRN applic PRN Reason: Dry Skin Docusate Sodium Cap [Colace Cap] 100 mg PO BID capsule traZODone [Desyrel] 25 mg PO BEDTIME PRN tablet PRN Reason: Insomnia Continue Alfuzosin [Uroxatral] 10 mg PO DAILY Apixaban [Eliquis] 2.5 mg PO BID tablet Magnesium Hydroxide Susp [Milk of Magnesia] 45 ml PO BID PRN PRN Reason: Constipation methylPREDNISolone TAB [Medrol] 4 mg PO DAILY tablet Pantoprazole Tab [Protonix Tab] 40 mg PO DAILY tablet [place]-3 Fatty Acids [Fish Oil Concentrate] 1,000 mg PO DAILY Docusate Sodium Cap [Colace Cap] 100 mg PO BID capsule FLUoxetine [PROzac] 20 mg PO DAILY capsule Discontinued Acetaminophen Tab [Tylenol Tab] 500 mg PO Q4H Losartan Potassium 50 mg PO DAILY Lisinopril [Prinivil] 10 mg PO DAILY tablet Loratadine Tab [Claritin Tab] 10 mg PO DAILY PRN tablet PRN Reason: Allergy Symptoms HYDROcodone/ACETAMIN 7.5-325 [[place] 7.5-325] 1 tablet PO Q4H PRN PRN Reason: Pain Moderate To Severe (4-10) Sulfameth/Trimeth 800-160 Tab [Bactrim DS Tab] 1 tablet PO BID #6 tablet - Follow Up or Referral Follow Up: Jung Wyman DO [Primary Care Provider] - 2 Weeks (2 weeks post discharge from rehab - Call to schedule after you leave rehab. ) - Forms/Instructions Instructions: Kidney Stones (DC), Hypernatremia (DC) Additional Discharge Instructions: Dietary consult on discharge to monitor intake. Restart Eliquis and Aspirin on 04/08/2017 Exam - Constitutional Vitals: Period Temp Pulse Resp BP Sys/Nixon Pulse Ox Last 24 Hr 97.0 F-97.6 F 48-80 18-20 123-144/66-89 93-100 Discharge Results Labs on day of discharge: Labs from last 24 hours 04/07/17 04/06/17 04/06/17 04:49 19:17 15:25 Sodium 141 Potassium 5.0 Chloride 116 H Carbon Dioxide 17 L Anion Gap 13.0 BUN 31 H Creatinine 1.90 H GFR Calculation 36 BUN/Creatinine Ratio 16.00 Glucose 104 POC Glucose 128 H 127 H Calculated Osmolality 287.3 Calcium 7.8 L 04/06/17 07:06 Sodium Potassium Chloride Carbon Dioxide Anion Gap BUN Creatinine GFR Calculation BUN/Creatinine Ratio Glucose POC Glucose 119 H Calculated Osmolality Calcium DS: Provider Date of admission: 04/01/17 13:32 Primary care physician: Jung Wyman DO Attending physician on admission: Jung Wyman DO Consults: 03/31/17 16:37 Consult to Case Mgmt/Social Srvs [CONS] Routine Reason for Case Mgmt/Social Srvs: Discharge Planning Consult to Physician [CONS] Routine Comment: kidney stones intractable pain Consulting Provider: Dustin Maravilla Consult Notification Comment: Dr. Maravilla aware of patient 03/31/17 16:40 Consult to Physician [CONS] Routine Comment: follow up from [facility] Consulting Provider: Christopher Dexter Jr. Person Notified: april Date Notified: 03/31/17 Time Notified: 16:57 03/31/17 18:34 Consult to Dietitian [CONS] Routine Reason for Dietitian: Other 03/31/17 19:19 Consult to Dietitian [CONS] Routine Reason for Dietitian: Dietary Consult Consult Comment: not eating well 03/31/17 21:37 Consult to Wound Care [facility] [CONS] Routine Reason for Wound Care: Wound Care Management 04/01/17 20:46 Consult to Occupational Therapy [CONS] Routine Reason for Occupational Therapy: Evaluate and Treat Start Therapy: Tomorrow Consult Comment: s/p cva from [facility] Consult to Physical Therapy [CONS] Routine Reason for Physical Therapy: Evaluate and Treat Start Therapy: Tomorrow Consult Comment: s/p cva tx frm [facility] Discharging clinician: Jung Wyman DO
[2017-04-07] MEDS: MULTIVITAMIN (CENTRUM) TABLET PO SCH (08:26)
[2017-04-07] MEDS: DOCUSATE SODIUM 100 MG CAPSULE PO SCH (08:27)
[2017-04-07] MEDS: DESITIN 4OZ/NYSTATIN 15 GRAM MIXTURE PASTE TOP SCH (08:27)
[2017-04-07] MEDS: PANTOPRAZOLE 40 MG TABLET PO SCH (08:27)
[2017-04-07] MEDS: methylPREDNISolone 4 MG TABLET PO SCH (08:27)
[2017-04-07] MEDS: FLUoxetine 20 MG CAPSULE PO SCH (08:27)
[2017-04-07] MEDS: ALFUZOSIN 10 MG TABLET PO SCH (08:28)
[2017-04-07 11:34] VITALS: BP 169/69
== END 2017-04-07 13:20 | DRG 669 ==
LOC: EDBD → EDUNIT# → N.ED 14:04 → N.EDINP 14:04 → N.2E 16:55
PROVIDERS: ADMIT Family Medicine; ATTEND Family Medicine

== ENCOUNTER 2017-04-16 15:03 | Observation (INO) ==
--- NOTE | 2017-04-16 15:45 | Emergency Department Note ---
Arrival - Arrival Chief Complaint: Urogenital - Male Stated Complaint: unable to void ED Nursing Triage Note: pt had lithotripsy on 04/07 since that time he has not been able to void without in and out cath. Mode of Arrival: Stretcher Source: Patient, Family Time Seen by Provider: 04/16/17 15:16 - History of Present Illness HPI Narrative: 81 y/o male presents to the ER complaining of lower abdominal pain and difficulty urinating. Patient daughter states patient had Lithotripsy on 04/[address] Maravilla and has had difficulty urinating since that time. Complaining of nausea and vomiting. Denies fever, chills, or body aches. Patient is currently at [facility] for physical therapy after having a CVA 4 weeks ago. Past medical history significant for HTN, kidney stones, prostate CA, arthritis , left side paralysis. Consistency: intermittent Severity: mild Quality: fullness Allergies/Adverse Reactions: Allergies Allergy/AdvReac Type Severity Reaction Status Date / Time Penicillins Allergy RASH Verified 04/07/17 15:07 Home Medications: Home Medications Medication Instructions Recorded Confirmed Type Alfuzosin [Uroxatral] 10 mg PO DAILY 10/17/16 04/07/17 History [place]-3 Fatty Acids [Fish Oil 1,000 mg PO DAILY 10/17/16 04/07/17 History Concentrate] Apixaban [Eliquis] 2.5 mg PO BID tablet 03/21/17 04/07/17 Rx Docusate Sodium Cap [Colace Cap] 100 mg PO BID capsule 03/21/17 04/07/17 Rx Magnesium Hydroxide Susp [Milk of 45 ml PO BID PRN 03/21/17 04/07/17 Rx Magnesia] Pantoprazole Tab [Protonix Tab] 40 mg PO DAILY tablet 03/21/17 04/07/17 Rx methylPREDNISolone TAB [Medrol] 4 mg PO DAILY tablet 03/21/17 04/07/17 Rx FLUoxetine [PROzac] 20 mg PO DAILY capsule 03/31/17 04/07/17 Rx Acetaminophen Tab [Tylenol Tab] 650 mg PO Q6H PRN tablet 04/07/17 04/07/17 Rx Aspirin EC Tab 325 mg PO DAILY tablet 04/07/17 04/07/17 Rx Docusate Sodium Cap [Colace Cap] 100 mg PO BID capsule 04/07/17 04/07/17 Rx Multivitamin (Centrum) [Centrum 1 tablet PO DAILY tablet 04/07/17 04/07/17 Rx Tab] Pantoprazole Tab [Protonix Tab] 40 mg PO DAILY tablet 04/07/17 04/07/17 Rx Skin Healing Oint (Aquaphor) 1 applic TOP PRN PRN applic 04/07/17 04/07/17 Rx [Aquaphor] traZODone [Desyrel] 25 mg PO BEDTIME PRN tablet 04/07/17 04/07/17 Rx Review of System - Review of System 12 point system: reviewed and no additional remarkable complaints except as stated - Review of System Gastrointestinal: Present: abdominal pain (lower abdominal pain ), nausea Genitourinary male: Present: other (urinary retention ) Medical,Surgical,& Family Hx - Medical History Cardio: History of: Hypertension Psychological: No history of: Psychiatric Problems Neurology: History of: Cerebrovascular Accident (Left sided weakness) No history of: Seizures HEENT: History of: Eye Problem (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) Endocrine: No history of: Endocrine Problems Rheumatology: No history of;: Rheumatological Problems Respiratory: No history of: Respiratory Problems Genitourinary: History of: Kidney Stones, Prostate Problems (history of prostate cancer) Gastrointestinal: History of: GI Problems (occasional constipation.) Musculoskeletal: History of: Back/Neck Problems (Back pain), Musculoskeletal Problems (arthritis) - Surgical History Abdominal Surgeries: Surgical HX of: Colonoscopy, EGD Reproductive Surgeries: Surgical HX of;: Prostate Surgery (seeds planted with prostate cancer) - Family History Family History: Reports;: Family Cancer, Family Heart Disease - Social History Smoking Status: Never smoker Exam Vital Signs: Vital Signs Temperature 97.4 F L 04/16/17 15:05 Pulse Rate 99 H 04/16/17 15:05 Respiratory Rate 18 04/16/17 15:05 Blood Pressure 149/91 04/16/17 15:15 O2 Sat by Pulse Oximetry 99 04/16/17 15:05 - General General appearance: alert, in no apparent distress - ENT ENT exam: Present: normal exam, normal oropharynx, mucous membranes moist - Chest Chest inspection: Present: normal inspection - Respiratory Respiratory exam: Present: normal lung sounds bilaterally - Cardiovascular Cardiovascular exam: Present: regular rate, normal rhythm, normal heart sounds - Abdominal Exam Abdominal exam: Present: soft, tenderness (suprapubic ), normal bowel sounds - Extremities Exam Extremities exam: Present: normal inspection, other (left side paralysis ) - Back Exam Back exam: Absent: CVA tenderness (R), CVA tenderness (L) - Neurological Exam Neurological exam: Present: alert, oriented X3 - Psychiatric Psychiatric exam: Present: normal affect, normal mood - Skin Skin exam: Present: warm, dry Course Course Narrative: Bladder Scan: 681 ml - Consultations Consultation #1: Dr. Wyman Time: 16:45 (Will admit patient to Dr. Wyman ) Results - Labs CBC & BMP: 04/16/17 15:26 04/16/17 15:26 Lab Results: I have reviewed the patients labs - Diagnostic Findings Procedure: Abdominal x-ray: image reviewed by me, report reviewed by me (distal ureteral stones ) Disposition Clinical Impression: Urinary retention, Decreased appetite, Abnormal kidney function study, Ureteral stone Disposition: Still a Patient Condition: Stable
[2017-04-16 16:07] LABS: Basophils % 0.2 % (0.0-0.8); Eosinophils % 0.2 % (0.00-10.9); Hemoglobin 15.7 GM/DL (14.0-18.0); Immature Granulocytes % 0.8 %; Immature Granulocytes Absolute 0.07 #; Lymphocytes # 0.7 10*3/uL (1.4-4.0); Lymphocytes % 8.3 % (21.2-54.2); Mean Corpuscular HGB Conc 34.9 GM/DL (32-36); Mean Corpuscular Hemoglobin 31 PG (27-34); Mean Corpuscular Volume 88.2 FL (87-102); Mean Platelet Volume 10.6 FL (9.6-12.0); Monocytes # 0.5 10*3/uL (0.11-0.8); Monocytes % 5.1 % (1.7-12.7); Neutrophils # 7.6 10*3/uL (1.4-7.4); Neutrophils % 85.4 % (38.7-73.9); Platelet Count 242 T/CUMM (130-400); Red Cell Distribution Width 13.2 % (9.3-17.3); White Blood Count 8.8 T/CUMM (4-12)
[2017-04-16 16:30] LABS: Albumin 3.8 G/DL (3.4-5.0); Bilirubin,Total 0.9 MG/DL (0.2-1.0); Calcium 9.7 MG/DL (8.5-10.1); Osmolality,Calculated 301.7 MOS/KG (273-304); Potassium 5.2 MMOL/L (3.5-5.1); Total Protein 6.9 G/DL (6.4-8.3)
[2017-04-16] MEDS ORDERED: SODIUM CHLORIDE 0.9% 1,000 ML IV STA (16:44)
--- NOTE | 2017-04-16 17:02 | XRay Report ---
History: Urinary retention. Recent lithotripsy Date: 04/16/2017 Study: KUB Comparison exam: April 07, 2017 The bowel gas pattern is nonobstructive without gross mass lesion. There are 2 ureteral stone fragments measuring 6 mm and less within 2 to 3 cm of the left UVJ. These have migrated since the comparison study. The exam is otherwise unchanged from the previous study. Prostate seed implants overlie the pelvis bilaterally. 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 Daily Chang
[2017-04-16 17:03] LABS: Apearance,Urine CLEAR (Clear); Bilirubin,Urine Negative (Negative); Blood, Urine Small mg/dL (Negative); Glucose,Urine (UA) Negative (Negative); Ketones,Urine Negative (Negative); Mucus,Urine Occasional /LPF (Occasional); Nitrite,Urine Positive (Negative); Protein,Urine Negative; RBC,Urine 22 /HPF (0-4); Urine Color Amber (Yellow); WBC,Urine 2 /HPF (0-6)
[2017-04-16] MEDS ORDERED: ACETAMINOPHEN 325 MG TABLET PO PRN (18:25)
[2017-04-16] MEDS ORDERED: ONDANSETRON 4 MG/2 ML VIAL IV PRN (18:25)
[2017-04-16] MEDS: SODIUM CHLORIDE 0.9% 1,000 ML IV SCH (18:39)
--- NOTE | 2017-04-16 19:07 | Family Practice History&Phys ---
Assessment and Plan (1) Decreased appetite Status: Acute Assessment and plan: 04/16/2017: Plan dietary consult and calorie counts Current Visit: Yes (2) Ureteral stone Status: Acute Assessment and plan: 04/16/2017: We will get a urology consult for further evaluation. Well-known to Dr. Maravilla. Continue IV hydration Current Visit: Yes (3) Urinary retention Status: Acute Assessment and plan: 04/16/2017: He is on Uroxatral. 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 Her holding the Eliquis tonight but will decide whether restarting it based on what urology wants today or tomorrow. Current Visit: No History of Present Illness Chief complaint: Suprapubic pain, hematuria, left ureteral lithiasis History of present illness: Mr. Ventura is a 81 year old male Well-known to me. He is status post CVA with left-sided involvement. Has also got kidney stones somewhat difficult to treat due to the fact that were having to give him blood thinners due to previous strokes. Also has what appears to be a UTI with elevated nitrite. He does have a hematuria secondary to the ureteral stones and also the fact that he is on anticoagulant. Has lost a significant amount of weight with failure to thrive approximately 7 pounds over the last 2 weeks. He is alert and oriented and does answer questions and follows command but is basically unable to move his left upper extremity and only has gross movement of his left lower extremity. Other physical findings include left shoulder pain and I am going to ask for this. He also has probable oral thrush and am going planning on treating this with swish and swallow. Appears to be subjectively dehydrated and is a little bit emaciated from his loss of weight At this time family is concerned about voiding difficulty. Has required straight caths lately, these have been somewhat difficult to perform, the patient has been having "dribbling" of urine over the last several days. It is been somewhat dark and is with blood-tinged urine. Only had mild difficulty with insertion of the catheter in the emergency room. We will admit. Catheter is already been placed as mentioned. Will get a urinalysis with urine culture and sensitivity. I am going to place him on antibiotics tonight and get urology to see him in the morning for 2 stones that are apparent in the left lower ureter on x-ray. They measured approximately 6 and 3 mm respectively. Will hold Eliquis tonight Home Medications Medication Instructions Recorded Confirmed Type Alfuzosin [Uroxatral] 10 mg PO DAILY 10/17/16 04/16/17 History [place]-3 Fatty Acids [Fish Oil 1,000 mg PO DAILY 10/17/16 04/16/17 History Concentrate] Apixaban [Eliquis] 2.5 mg PO BID tablet 03/21/17 04/16/17 Rx Magnesium Hydroxide Susp [Milk of 45 ml PO BID PRN 03/21/17 04/16/17 Rx Magnesia] methylPREDNISolone TAB [Medrol] 4 mg PO DAILY tablet 03/21/17 04/16/17 Rx FLUoxetine [PROzac] 20 mg PO DAILY capsule 03/31/17 04/16/17 Rx Acetaminophen Tab [Tylenol Tab] 650 mg PO Q6H PRN tablet 04/07/17 04/16/17 Rx Aspirin EC Tab 325 mg PO DAILY tablet 04/07/17 04/16/17 Rx Docusate Sodium Cap [Colace Cap] 100 mg PO BID capsule 04/07/17 04/16/17 Rx Multivitamin (Centrum) [Centrum 1 tablet PO DAILY tablet 04/07/17 04/16/17 Rx Tab] Pantoprazole Tab [Protonix Tab] 40 mg PO DAILY tablet 04/07/17 04/16/17 Rx Skin Healing Oint (Aquaphor) 1 applic TOP PRN PRN applic 04/07/17 04/16/17 Rx [Aquaphor] traZODone [Desyrel] 25 mg PO BEDTIME PRN tablet 04/07/17 04/16/17 Rx Ondansetron Tab [Zofran Tab] 4 mg PO Q4HR PRN 04/16/17 04/16/17 History Allergies Allergy/AdvReac Type Severity Reaction Status Date / Time Penicillins Allergy RASH Verified 04/07/17 15:07 12 point system: reviewed and no additional remarkable complaints except as stated (As mentioned in the history and physical.) - EENT Eyes: Present: loss of vision (Left sided due to recent stroke. Patient does have neglect to the left side) - Genitourinary Genitourinary: Present: difficulty urinating, urinary incontinence (Probably overflow) Medical,Surgical,& Family Hx - Medical History Cardio: History of: Hypertension Psychological: No history of: Psychiatric Problems Neurology: History of: Cerebrovascular Accident (Left sided weakness) No history of: Seizures HEENT: History of: Eye Problem (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) Endocrine: No history of: Endocrine Problems Rheumatology: No history of;: Rheumatological Problems Respiratory: No history of: Respiratory Problems Genitourinary: History of: Kidney Stones, Prostate Problems (history of prostate cancer) Gastrointestinal: History of: GI Problems (occasional constipation.) Musculoskeletal: History of: Back/Neck Problems (Back pain), Musculoskeletal Problems (arthritis) - Surgical History Abdominal Surgeries: Surgical HX of: Colonoscopy, EGD Reproductive Surgeries: Surgical HX of;: Prostate Surgery (seeds planted with prostate cancer) - Family History Family History: Reports;: Family Cancer, Family Heart Disease - Social History Smoking Status: Never smoker Frequency of Alcohol Use: None Type of Drug Use: None Exam - Constitutional Vitals: Period Temp Pulse Resp BP Sys/Nixon Pulse Ox Last 24 Hr 97.1 F-97.4 F 72-99 16-18 149-171/73-113 99-100 Exam: Generally some loss of weight. Patient is a little more fatigued however he is getting extensive physical therapy at the long term. HEENT pupils are equally reactive. He has no left-sided neglect. The neck is supple and trachea is midline. Cardiovascular rate is slightly irregular (will get an EKG) there is no JVD. No gallop or rub Lungs clear bilaterally patient has no shortness of breath, no cough no respiratory difficulty Abdomen soft nondistended no peritoneal signs no suprapubic tenderness and there is no distention as the patient does have a Cabrera catheter now and is draining some blood-tinged urine Extremities left sided muscle atrophy secondary to recent CVA in both upper and lower extremities, no clubbing cyanosis or edema Neurologically as noted above patient has left-sided neglect and also some motor deficits on that same side. He is very alert and answers all questions well and not having any obvious slurred speech. Results - Labs CBC & BMP: 04/16/17 15:26 04/16/17 15:26 Quality Measures - Stroke Onset of Symptoms Date: 03/18/17 Presenting Symptoms: Left hemiparesis
[2017-04-16] MEDS ORDERED: cefTRIAXone 1,000 MG in SODIUM CHLORIDE 0.9% 100 ML IV SCH (19:30)
--- NOTE | 2017-04-16 20:30 | XRay Report ---
History: Shoulder pain Date: 04/16/2017 Study: Left shoulder 2 views Comparison exam: No previous There is no fracture, dislocation, or focal destructive osseous abnormality. There is moderate hypertrophic change of the acromioclavicular joint. There is mild osteophyte formation at the inferior aspect of the glenohumeral joint. There is suspected osteopenia. Impression: No acute process. Degenerative changes PROCEDURE INTERPRETED AT [facility] DEPARTMENT OF RADIOLOGY Final Report Signed by: Dr. Daily Chang
[2017-04-16] MEDS: NITROFURANTOIN MACRO/MONO 100 MG CAPSULE PO SCH (20:58)
[2017-04-16] MEDS: NYSTATIN 500,000 UNIT/5 ML UDCUP SWISH/SWAL SCH (20:58)
[2017-04-16] MEDS: DESITIN 4OZ/NYSTATIN 15 GRAM MIXTURE PASTE TOP SCH (21:02)
[2017-04-17] MEDS: SODIUM CHLORIDE 0.9% 1,000 ML IV SCH ×2 (02:00→09:21)
[2017-04-17 05:51] LABS: Basophils % 0.2 % (0.0-0.8); Eosinophils % 0.2 % (0.00-10.9); Hematocrit 42.1 VOL% (42.0-52.0); Hemoglobin 14.6 GM/DL (14.0-18.0); Immature Granulocytes % 0.9 %; Immature Granulocytes Absolute 0.09 #; Lymphocytes # 0.8 10*3/uL (1.4-4.0); Lymphocytes % 7.9 % (21.2-54.2); Mean Corpuscular HGB Conc 34.7 GM/DL (32-36); Mean Corpuscular Hemoglobin 31 PG (27-34); Mean Corpuscular Volume 88.3 FL (87-102); Mean Platelet Volume 10.7 FL (9.6-12.0); Monocytes # 0.7 10*3/uL (0.11-0.8); Monocytes % 6.5 % (1.7-12.7); Neutrophils # 8.9 10*3/uL (1.4-7.4); Neutrophils % 84.3 % (38.7-73.9); Platelet Count 217 T/CUMM (130-400); Red Blood Count 4.77 MC/CUMM (3.8-5.5); Red Cell Distribution Width 13.2 % (9.3-17.3); White Blood Count 10.6 T/CUMM (4-12)
[2017-04-17 06:01] LABS: Calcium 9.2 MG/DL (8.5-10.1); Osmolality,Calculated 309.1 MOS/KG (273-304); Potassium 4.8 MMOL/L (3.5-5.1)
[2017-04-17 07:11] LABS: Apearance,Urine CLEAR (Clear); Bilirubin,Urine Negative (Negative); Blood, Urine Large mg/dL (Negative); Glucose,Urine (UA) Negative (Negative); Ketones,Urine 20 mg/dL (Negative); Mucus,Urine Occasional /LPF (Occasional); Nitrite,Urine Positive (Negative); Protein,Urine 30 MG/DL; RBC,Urine 82 /HPF (0-4); Squamous Epithelial Cell,Urine Occasional /HPF (0-10); Urine Color Amber (Yellow); Urine Specific Gravity 1.019 (1.001-1.035); WBC,Urine 21 /HPF (0-6)
[2017-04-17] MEDS ORDERED: MULTIVITAMIN (CENTRUM) TABLET PO SCH (09:00)
[2017-04-17] MEDS ORDERED: DOCUSATE SODIUM 100 MG CAPSULE PO SCH (09:00)
[2017-04-17] MEDS ORDERED: FLUoxetine 20 MG CAPSULE PO SCH (09:00)
[2017-04-17] MEDS ORDERED: ALFUZOSIN 10 MG TABLET PO SCH (09:00)
[2017-04-17] MEDS ORDERED: ASPIRIN EC 325 MG TABLET PO SCH (09:00)
[2017-04-17] MEDS ORDERED: PANTOPRAZOLE 40 MG TABLET PO SCH (09:00)
[2017-04-17] MEDS ORDERED: methylPREDNISolone 4 MG TABLET PO SCH (09:00)
[2017-04-17] MEDS: NYSTATIN 500,000 UNIT/5 ML UDCUP SWISH/SWAL SCH ×2 (10:13→14:09)
--- NOTE | 2017-04-17 11:13 | Urology Consultation ---
History of Present Illness - Data of Consult Patient: known to practice within the last 3 years Consult date: 04/17/17 - Consult Narrative Reason for consult: Urinary retention History of present illness: Mr. Ventura is a 81 year old male who is in the hospital urinary retention. He had lithotripsy some time ago and has fragments left. I recommend we place him on Flomax DC his Cabrera and perform intermittent catheterization. He has an appointment see Renita he will keep that. CC: Jung Wyman, DO - Home Medications and Allergies Home Medications: Home Medications Medication Instructions Recorded Confirmed Type Alfuzosin [Uroxatral] 10 mg PO DAILY 10/17/16 04/16/17 History [place]-3 Fatty Acids [Fish Oil 1,000 mg PO DAILY 10/17/16 04/16/17 History Concentrate] Apixaban [Eliquis] 2.5 mg PO BID tablet 03/21/17 04/16/17 Rx Magnesium Hydroxide Susp [Milk of 45 ml PO BID PRN 03/21/17 04/16/17 Rx Magnesia] methylPREDNISolone TAB [Medrol] 4 mg PO DAILY tablet 03/21/17 04/16/17 Rx FLUoxetine [PROzac] 20 mg PO DAILY capsule 03/31/17 04/16/17 Rx Acetaminophen Tab [Tylenol Tab] 650 mg PO Q6H PRN tablet 04/07/17 04/16/17 Rx Aspirin EC Tab 325 mg PO DAILY tablet 04/07/17 04/16/17 Rx Docusate Sodium Cap [Colace Cap] 100 mg PO BID capsule 04/07/17 04/16/17 Rx Multivitamin (Centrum) [Centrum 1 tablet PO DAILY tablet 04/07/17 04/16/17 Rx Tab] Pantoprazole Tab [Protonix Tab] 40 mg PO DAILY tablet 04/07/17 04/16/17 Rx Skin Healing Oint (Aquaphor) 1 applic TOP PRN PRN applic 04/07/17 04/16/17 Rx [Aquaphor] traZODone [Desyrel] 25 mg PO BEDTIME PRN tablet 04/07/17 04/16/17 Rx Ondansetron Tab [Zofran Tab] 4 mg PO Q4HR PRN 04/16/17 04/16/17 History Allergies/Adverse Reactions: Allergies Allergy/AdvReac Type Severity Reaction Status Date / Time Penicillins Allergy RASH Verified 04/07/17 15:07 Exam - Constitutional Vitals: Period Temp Pulse Resp BP Sys/Nixon Pulse Ox Last 24 Hr 97.1 F-97.8 F 72-100 16-22 137-171/71-113 93-100 Results - Labs CBC & BMP: 04/17/17 04:52 04/17/17 04:52
[2017-04-17 11:23] VITALS: BP 139/99
[2017-04-17] MEDS ORDERED: TAMSULOSIN 0.4 MG CAPSULE PO SCH (11:30)
[2017-04-17] MEDS: NITROFURANTOIN MACRO/MONO 100 MG CAPSULE PO SCH (11:38)
[2017-04-17] MEDS: DESITIN 4OZ/NYSTATIN 15 GRAM MIXTURE PASTE TOP SCH (11:40)
--- NOTE | 2017-04-17 13:51 | Discharge Summary ---
Hospital Course - Hospital Course Hospital Course: Patient came to the hospital with difficulty voiding/urinary retention. He was requiring straight caths in the intermediate. There was some concern that he may have had a stone in the urethra, but this proved to be more of a urethral stricture with hypertonic sphincter. We did place him on Flomax and Uroxatrol in the hospital. He is on an anticoagulant and we held this just in case there was a possibility of a procedure however it was felt by urology that he could probably pass the 2 small stones were noted in the distal ureter on the left. They measure approximately 6 x 3 mm and it was felt that time and hydration would manage these. He is in no distress and discussed all of these factors with the family. We are going to send him back to the intermediate for therapy and we will need to straight cath him periodically if necessary. 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 Specialty Discharge - Follow Up or Referrals Follow up with: Jung Wyman DO [Primary Care Provider] - Discharge Plan - Discharge Data Disposition: Disch/Xfer-Ip Rehab Fac Condition at Discharge: Stable Discharge Diet: advance to your usual diet Activity: as per physical therapy Hygiene: other (with assistance) Weight Bearing at Discharge: weight bear as tolerated Driving: not for Contact your physician if you experience:: fever over 101, Difficulty voiding, Shortness of breath - Discharge Medications New Tamsulosin [Flomax] 0.4 mg PO BID capsule Continue Alfuzosin [Uroxatral] 10 mg PO DAILY Apixaban [Eliquis] 2.5 mg PO BID tablet Magnesium Hydroxide Susp [Milk of Magnesia] 45 ml PO BID PRN PRN Reason: Constipation methylPREDNISolone TAB [Medrol] 4 mg PO DAILY tablet Acetaminophen Tab [Tylenol Tab] 650 mg PO Q6H PRN tablet PRN Reason: Fever > 100.4 Or Headache Aspirin EC Tab 325 mg PO DAILY tablet Multivitamin (Centrum) [Centrum Tab] 1 tablet PO DAILY tablet Pantoprazole Tab [Protonix Tab] 40 mg PO DAILY tablet Skin Healing Oint (Aquaphor) [Aquaphor] 1 applic TOP PRN PRN applic PRN Reason: Dry Skin [place]-3 Fatty Acids [Fish Oil Concentrate] 1,000 mg PO DAILY Docusate Sodium Cap [Colace Cap] 100 mg PO BID capsule traZODone [Desyrel] 25 mg PO BEDTIME PRN tablet PRN Reason: Insomnia Ondansetron Tab [Zofran Tab] 4 mg PO Q4HR PRN PRN Reason: Nausea FLUoxetine [PROzac] 20 mg PO DAILY capsule No Action Atorvastatin [Lipitor] 5 mg PO DAILY Megestrol Liquid [Megace Liquid] 200 mg PO DAILY - Follow Up or Referral Follow Up: Jung Wyman DO [Primary Care Provider] - - Forms/Instructions Exam - Constitutional Vitals: Period Temp Pulse Resp BP Sys/Nixon Pulse Ox Last 24 Hr 97.1 F-98.2 F 72-100 16-22 137-171/71-113 93-100 Discharge Results Procedures and tests throughout hospitalization: Pending Orders 04/16/17 Urine Culture Routine 04/17/17 Urine Culture Routine Labs on day of discharge: Labs from last 24 hours 04/17/17 04/17/17 04/17/17 06:45 04:52 04:52 WBC 10.6 RBC 4.77 Hgb 14.6 Hct 42.1 MCV 88.3 MCH 31 MCHC 34.7 RDW 13.2 Plt Count 217 MPV 10.7 Neut % (Auto) 84.3 H Lymph % (Auto) 7.9 L Wright % (Auto) 6.5 Eos % (Auto) 0.2 Baso % (Auto) 0.2 Neut # (Auto) 8.9 H Lymph # (Auto) 0.8 L Wright # (Auto) 0.7 Eos # (Auto) 0.0 Baso # (Auto) 0.0 Immature Gran % 0.9 Nucleated RBC % 0.0 Immature Gran # 0.09 Nucleated RBCs # 0.00 Sodium 149 H Potassium 4.8 Chloride 119 H Carbon Dioxide 16 L Anion Gap 18.8 H BUN 52 H Creatinine 2.30 H GFR Calculation 28 BUN/Creatinine Ratio 22.00 H Glucose 95 Calculated Osmolality 309.1 H Calcium 9.2 Total Bilirubin AST ALT Alkaline Phosphatase Total Protein Albumin Globulin Albumin/Globulin Ratio Urine Color Aura Urine Appearance Clear Urine pH 5.0 Ur Specific [place] 1.019 Urine Protein 30 Urine Glucose (UA) Negative Urine Ketones 20 Urine Blood Large Urine Nitrate Positive H Urine Bilirubin Negative Urine Urobilinogen 2.0 H Urine Leukocytes Small H Urine RBC 82 Urine WBC 21 Ur Squamous Epith Cells Occasional Urine Mucus Occasional Ur Culture Indicated? Results to follow 04/16/17 04/16/17 04/16/17 16:50 15:26 15:26 WBC 8.8 RBC 5.10 Hgb 15.7 Hct 45.0 MCV 88.2 MCH 31 MCHC 34.9 RDW 13.2 Plt Count 242 MPV 10.6 Neut % (Auto) 85.4 H Lymph % (Auto) 8.3 L Wright % (Auto) 5.1 Eos % (Auto) 0.2 Baso % (Auto) 0.2 Neut # (Auto) 7.6 H Lymph # (Auto) 0.7 L Wright # (Auto) 0.5 Eos # (Auto) 0.0 Baso # (Auto) 0.0 Immature Gran % 0.8 Nucleated RBC % 0.0 Immature Gran # 0.07 Nucleated RBCs # 0.00 Sodium 145 Potassium 5.2 H Chloride 114 H Carbon Dioxide 20 L Anion Gap 16.2 H BUN 52 H Creatinine 2.40 H GFR Calculation 29 BUN/Creatinine Ratio 21.00 H Glucose 98 Calculated Osmolality 301.7 Calcium 9.7 Total Bilirubin 0.90 AST 21 ALT 44 Alkaline Phosphatase 99 Total Protein 6.9 Albumin 3.8 Globulin 3.1 Albumin/Globulin Ratio 1.2 Urine Color Aura Urine Appearance Clear Urine pH 5.0 Ur Specific [place] 1.020 Urine Protein Negative Urine Glucose (UA) Negative Urine Ketones Negative Urine Blood Small Urine Nitrate Positive H Urine Bilirubin Negative Urine Urobilinogen 2.0 H Urine Leukocytes Negative Urine RBC 22 Urine WBC 2 Ur Squamous Epith Cells Urine Mucus Occasional Ur Culture Indicated? Results to follow Preliminary micro results at discharge 04/16/17 Unknown Urine Culture - Preliminary Urine,Voided No Growth at 12 hours. DS: Provider Date of admission: 04/16/17 17:10 Primary care physician: Jung Wyman DO Attending physician on admission: Jung Wyman DO Consults: 04/16/17 18:25 Consult to Case Mgmt/Social Srvs [CONS] Routine Reason for Case Mgmt/Social Srvs: Discharge Planning 04/16/17 18:35 Consult to Physician [CONS] Routine Comment: Consulting Provider: Onur Gama When should Consulting Provider be notified: In am Person Notified: jada Date Notified: 04/17/17 Time Notified: 08:15 04/16/17 18:47 Consult to Dietitian [CONS] Routine Reason for Dietitian: Dietary Consult 04/16/17 18:54 Consult to Pastoral Services [CONS] Routine Comment: Pastoral Screen: Declines Visit Pastoral Screen Source of Request: Patient Family Discharging clinician: Jung Wyman DO
== END 2017-04-17 15:11 ==
LOC: EDUNIT# → EDBD → N.ED 15:03 → N.EDINP 15:03 → N.2E 18:25
PROVIDERS: ADMIT Family Medicine; ATTEND Family Medicine